=== PATIENT | female | born 1990 | race Caucasian/White ===

== ENCOUNTER 2020-01-17 11:02 | Outpatient (CLI) | payer BC, SELFPAY ==
--- NOTE | 2020-01-17 10:00 | DI.RAD_ITS ---
EXAM: XR KNEE LT 3V AP,LAT,LEATHA CLINICAL HISTORY: pain TECHNIQUE: COMPARISON: No exams were available for comparison FINDINGS: Three views were obtained. No bony or soft tissue abnormality seen. IMPRESSION:
--- NOTE | 2020-01-17 10:00 | DI.RAD_ITS ---
EXAM: XR HIP LT COMPLETE AP PELVIS CLINICAL HISTORY: pain TECHNIQUE: COMPARISON: No exams were available for comparison FINDINGS: Three views were obtained. The cartilaginous joint spaces of the hips appear fairly well maintained. There is tiny nonspecific ossific or calcific body adjacent to the lateral acetabulum left. SI joints appear well maintained. Bones of the hips and pelvis appear normal. IMPRESSION: Negative examination of the hip and pelvis.
== END 2020-01-17 11:22 ==
PROVIDERS: PCP Family Medicine; Referring Provider Family Medicine; Visit Provider Orthopaedic Surgery
DX: M25.552 Pain in left hip (principal); M25.562 Pain in left knee
CPT/HCPCS: 73562; 73502

== ENCOUNTER 2020-03-13 03:34 | Outpatient (CLI) | payer BC, SELFPAY ==
--- NOTE | 2020-03-13 07:30 | DI.MRI_ITS ---
EXAM: MR LOWER JOINT LT WO CLINICAL HISTORY: L KNEE PAIN,M25.562,G89.29. TECHNIQUE: Multiplanar multisequence MRI was performed. COMPARISON: CR XR KNEE LT 3V AP,LAT,LEATHA from 01/17/2020 FINDINGS: There is a small joint effusion. The cruciate and collateral ligaments and extensor mechanism appe ar intact. No meniscal tear is or significant meniscal degeneration is seen. No cartilage defects o r bone contusions are seen. IMPRESSION: Small joint effusion. No evidence of ligament or meniscal tear. DATA REPOSITORY:
== END 2020-03-13 03:54 ==
PROVIDERS: PCP Family Medicine; Visit Provider Orthopaedic Surgery
DX: M25.462 Effusion, left knee (principal); M25.562 Pain in left knee; G89.29 Other chronic pain
CPT/HCPCS: 73721

== ENCOUNTER 2020-06-14 13:29 | Outpatient (REF) | payer BC, SELFPAY ==
[2020-06-14 21:48] LABS: HCT 45.1 % (36.0-46.0); MCHC 33.3 % (32.0-36.0); MCV 87.2 fL (80-95); MPV 12.9 fL (8.0-11.0); Platelet Count 233 10^3/uL (130-400); RBC 5.17 10^6/uL (3.93-5.22); RDW 12.1 % (11.7-14.6); RDW-SD 38.9 fL; WBC 6.46 10^3/uL (4.4-10.8)
[2020-06-14 22:08] LABS: ALT 30 U/L (14-59); AST 18 U/L (15-37); Albumin 4.4 g/dL (3.4-5.0); Alkaline Phosphatase 96 U/L (46-116); Anion Gap 10.2 mmol/L (3-11); BUN 9 mg/dL (7-18); Bilirubin, Total 0.3 mg/dL (0.2-1.0); CO2 24.8 mmol/L (21.0-32.0); CREATININE 0.79 mg/dL (0.55-1.02); Chloride 103 mmol/L (98-107); Glucose 94 mg/dL (74-106); Sodium 138 mmol/L (136-145); TSH (W/Ref FT4) 1.33 uIU/mL (0.36-3.74); Total Protein 8.1 g/dL (6.4-8.2)
[2020-06-14 22:21] LABS: Vitamin D 25 Total 31.9 ng/ml (30-100)
[2020-06-14 22:27] LABS: ESR 12 mm/hr (0-20)
[2020-06-15 16:57] LABS: Rheumatoid Factor <8.6 IU/mL (<12.0)
[2020-06-18 14:30] LABS: ANA Interpretation Negative (Negative)
== END 2020-06-14 13:49 ==
LOC: NCHCN 13:29
PROVIDERS: PCP Family Medicine; Visit Provider Family Medicine
DX: M25.40 Effusion, unspecified joint (principal); I10 Essential (primary) hypertension; F41.8 Other specified anxiety disorders; R53.83 Other fatigue
CPT/HCPCS: 80053; 82306; 85027; 85652; 83735; 84443; 86038; 86431

== ENCOUNTER 2020-11-04 10:40 | Emergency (ER) | payer BC, SELFPAY ==
[2020-11-04 10:45] VITALS: BP 150/84; PULSE 89; RESP 16; TEMP 36.7; O2SAT 98
--- NOTE | 2020-11-04 10:45 | DI.RAD_ITS ---
Exam(s) XR ANKLE RT COMPLETE XR TIB/FIB RT EXAM: XR TIB/FIB RT and XR ankle RT complete CLINICAL HISTORY: pain s/p fall. TECHNIQUE: 2D digital imaging was performed. COMPARISON: No previous for comparison. FINDINGS: BONES: No acute fracture or dislocation is present. No bony destructive lesion is seen. Visualized po rtion of knee and ankle joints are unremarkable. SOFT TISSUE: There is soft tissue swelling about the ankle laterally. IMPRESSION: 1. No acute fracture or dislocation. 2. Soft tissue swelling about the ankle laterally. DATA REPOSITORY: RADIATION DOSE DELIVERED:
--- NOTE | 2020-11-04 10:55 | ED.GENADUL_ITS ---
Discharge Plan Disposition Patient Disposition: HOME Condition: Stable Discharge Details Clinical Impression: Right ankle sprain Primary Care Provider: Libby Reyes ED Provider: Blair Waters Home Meds and New Rx's Prescriptions: Continued norethindrone-e.estradiol-iron [07/25 (28)] 1 EACH tablet 1 tab-cap PO DAILY Qty: 3 RF: 6 Discontinued cyclobenzaprine 10 mg tablet 10 mg PO HS PRNRF: 0 meloxicam 15 mg tablet 15 mg PO DAILY Qty: 30 RF: 0 Discharge Instructions Instructions: Ankle Sprain (ED) Additional Instructions: your xrays did not show any broken bones follow up with your primary care provider if pain continues in a week if you have worsening pain or new pain such as chest pain or abdomen pain return to the emergency department Medical Decision Making 30 yo female comes in with right ankle pain. She states she was stepping out of her shed and when she placed her right foot down it inverted due to it being muddy. She denies hitting head or loc. Has no head pain, chest pain, abdomen pain and only has pain in the right ankle and mid tibia. She does have swelling of the lateral malleolus and can dorsi and plantar flex though with pain, normal sensation and pulses, no pain over the foot. No knee tenderness with no swelling as well. Suspect sprain vs distal fibula fracture, will obtain xray imaging unremarkable on my read and vrad read as well. Remains stable, and unchanged exam, suspect sprain, she has crutches and placed in walking boot. I advised to follow upwith her pcp if pain continues in a week and return precautions given Differential Diagnosis Differential Diagnosis: sprain, strain, fracture Imaging Data Radiologic Study: Attestation: I personally reviewed and interpreted this imaging study as follows: Imaging: X-Ray My impression: no acute findings tibia/fibula fracture Radiologic Study #2: Attestation: I personally reviewed and interpreted this imaging study as follows: Imaging: X-Ray My impression: no acute findings ankle xray HPI General Mode of arrival: ambulatory (using crutches) . Date/Time Provider Initiated Documentation: 11/04/20 10:50 . Limitations to Documentation: no limitations . Information obtained by: patient . History of Present Illness 30 year old F presents to the emergency department with the chief complaint of right ankle pain, described as moderate, Quality is described as aching, and it has been constant. Rest improves symptom(s), Movement worsens symptoms . Patient notes no other symptoms.. Patient did receive the following treatments prior to arrival, none Related Data Home Medications Medication Instructions Recorded Confirmed norethindrone-e.estradiol-iron 1 tab-cap PO DAILY #3 pack 10/12/17 11/04/20 [07/25 ()] Previous Rx's Medication Instructions Recorded norethindrone-e.estradiol-iron 1 tab-cap PO DAILY #3 pack 10/12/17 [07/25 (28)] Allergies Allergy/AdvReac Type Severity Reaction Status Date / Time No Known Allergies Allergy Unverified 11/04/20 10:49 General Stated Complaint: Orthopedic CHELSEA: 4 Review of Systems All systems reviewed & are unremarkable except as noted in HPI and below Constitutional Constitutional: Denies chills, Denies fever(s) and Denies weakness Cardiovascular Cardiovascular: Denies chest pain and Denies dyspnea Respiratory Respiratory: Denies cough and Denies dyspnea Gastrointestinal Gastrointestinal: Denies abdominal pain, Denies nausea and Denies vomiting Neurologic Neurologic: Denies weakness [facility] Social History Smoking/Tobacco Use Status: Never Smoking risk assessment performed?: Yes Drug use: Never Substance use type: does not use Do you feel safe at home: Yes Do you feel safe in your relationship?: Yes Exam Const General: no acute distress Orientation: alert HENMT Head: normal to inspection Ears: external ears normal General nose exam: external nose normal Mouth: moist mucous membranes Eyes General: appearance normal, both eyes and all related structures Neck Neck: normal visual inspection Resp Effort & Inspection: normal respiratory effort and able to speak in complete sentences Cardio Rate: regular rate Skin General skin exam: no rashes or lesions noted Neuro General: patient alert and patient oriented x3 Extrem General: capillary refill normal Psych Mental Status: mental status grossly normal Course Vital Signs Vital signs: Vital Signs Temperature 36.7 C 11/04/20 10:45 Pulse 89 11/04/20 10:45 Respiratory Rate 16 11/04/20 10:45 Blood Pressure 150/84 H 11/04/20 10:45 Pulse Oximetry 98 11/04/20 10:45 Temperature 36.7 C 11/04/20 10:45 Temperature Source Skin 11/04/20 10:45 Pulse 89 11/04/20 10:45 Respiratory Rate 16 11/04/20 10:45 Respiratory Effort 11/04/20 10:45 Blood Pressure 150/84 H 11/04/20 10:45 Blood Pressure Position Sitting 11/04/20 10:45 Pulse Oximetry 98 11/04/20 10:45 Oxygen Delivery Method Room Air 11/04/20 10:45 Oxygen Flow Rate 0 11/04/20 10:45 Pain Level 10 11/04/20 10:50
[2020-11-04] MEDS: Ibuprofen 600 MG TAB PO (10:58)
--- NOTE | 2020-11-04 11:47 | DI.VRAD_ITS ---
PROCEDURE INFORMATION: Exam: XR Right Ankle Exam date and time: 11/04/2020 10:55 AM Age: 30 years old Clinical indication: Pain; Ankle; Right TECHNIQUE: Imaging protocol: XR Right ankle. Views: 3 or more views. COMPARISON: No relevant prior studies available. FINDINGS: Bones/joints: Lateral malleolar soft tissue swelling There is no evidence of acute fracture.There is no evidence of malalignment or dislocation. Soft tissues: Lateral malleolar soft tissue swelling IMPRESSION: There is no evidence of acute fracture.There is no evidence of malalignment or dislocation. Dictated and Authenticated by: Shania Hicks MD. Ordering:EDDIE Pinto MD
--- NOTE | 2020-11-04 11:51 | DI.VRAD_ITS ---
PROCEDURE INFORMATION: Exam: XR Right Tibia and Fibula Exam date and time: 11/04/2020 11:14 AM Age: 30 years old Clinical indication: Injury or trauma; Fall; Sprain or strain; Lower leg; Right TECHNIQUE: Imaging protocol: XR Right tibia and fibula. Views: 2 views. COMPARISON: No relevant prior studies available. FINDINGS: Bones/joints: There is no evidence of acute fracture.There is no evidence of malalignment or dislocation. Soft tissues: Normal. IMPRESSION: There is no evidence of acute fracture.There is no evidence of malalignment or dislocation. Dictated and Authenticated by: Shania Hicks MD. Ordering:EDDIE Pinto MD
== END 2020-11-04 12:04 | disposition home or self-care (01) ==
PROVIDERS: Emergency Provider Emergency Medicine; PCP Family Medicine
DX: S93.491A Sprain of other ligament of right ankle, initial encounter (principal); W18.40XA Slipping, tripping and stumbling without falling, unspecified, initial encounter
CPT/HCPCS: 29515; 99284; 73590; 73610; 99283

== ENCOUNTER 2021-10-16 01:24 | Outpatient (CLI) | payer BC, SELFPAY ==
--- NOTE | 2021-10-16 10:48 | DI.US_ITS ---
APPROVED REPORT EXAM: Comprehensive 2D, Doppler, and color-flow Echocardiogram Patient Location: Out-Patient [facility] Clerk: Ana Cristina Gannon RDCS (AE) Other Information Study Quality: Adequate Conclusion Normal left ventricular wall thickness and chamber size. Estimated ejection fraction is 55 to 60%. Wall motion is normal Normal right ventricular size and systolic function Both atria are normal in size There is no structural or hemodynamically significant valvular disease Normal estimated right ventricular systolic pressure 21.5 mmHg Wall motion Left Ventricle The left ventricle is normal size. The left ventricular systolic function is normal. The left ventric ular ejection fraction is within the normal range. There is normal left ventricular wall thickness. T here is normal LV segmental wall motion. There is no ventricular septal defect visualized. LVEF is 57 %. Right Ventricle The right ventricle is normal size. The right ventricular systolic function is normal. The RVSP is 21 .5 mmHg. Atria The left atrium size is normal. The right atrium size is normal. The interatrial septum is intact wit h no evidence for an atrial septal defect. Aortic Valve The aortic valve is normal in structure. There is no aortic valvular stenosis. No aortic regurgitatio n is present. Mitral Valve The mitral valve is normal in structure. No evidence of mitral valve stenosis. Trace mitral regurgita tion. Tricuspid Valve The tricuspid valve is normal in structure. There is no tricuspid valve stenosis. Mild tricuspid regu rgitation. Pulmonic Valve The pulmonary valve is normal in structure. There is no pulmonic valvular stenosis. There is no pulmo nirmal valvular regurgitation. Great Vessels The aortic root is normal in size. The ascending aorta is normal in size. Aortic arch is normal in ca liber. IVC is normal in size and collapses >50% with inspiration. Pericardium There is no pericardial effusion. 2D Dimensions IVSD d PLAX 0.97 cm F: 0.6-1.0 LV Vol A2C d MOD 90.2 mL LVPW d PLAX 0.98 cm F: 0.6 - 1.0 LV Vol A4C d MOD 94.6 mL LVID d PLAX 4.63 cm F: 3.8 - 5.2 LA vol/ BSA A2C s A-L 17.4 mL/m2 LVDs 3.20 cm F: 2.2 - 3.5 LA vol/ BSA A4C s A-L 17.8 mL/m2 Ao Root d 2.73 cm F: 2.7 - 3.3 LA Vol/ BSA Biplane s A-L 18.6 mL/m2 RA Area A4C 11.99 cm2 LA Area A4C s MOD 14.58 cm2 RA Vol/ BSA A4C s A-L 13.6 mL/m2 LA Area A2C s MOD 13.64 cm2 Ao Asc Diam d 3.01 cm F: 2.3 - 3.1 LV EF A4C MOD 57.0 % LV EF Teichholz 57.5 % LV EF A2C MOD 57.6 % LVEF (Smyth's) 57.18 % F: 54 - 74 LV EF Biplane MOD 57.2 % LV Volume 70.81 mL F: 46 - 106 SV 54.18 mL LV Volume Index 35.05 mL/m2 F: 29 - 61 SV Index 26.79 mL/m2 LV Vol Biplane MOD 94.8 mL FS 30.15 % M-Mode TAPSE 1.80 cm (M/F) >1.7 LV Diastology MV E' medial 0.083 (>0.07 m/s) E/A Ratio 1.0 LV E/e MED 6.55 (<14) MV E Vmax 0.55 (0.4-1.3 m/s) MV E' lateral 0.150 (>0.1 m/s) MV A Vmax 0.55 (0.4-1.3 m/s) LV E/e LAT 3.60 (<14) MV E/A Ratio 0.98 MV E/E' medial 6.59 MV E/E' lateral 3.64 Aortic Valve LVOT Area 3.12 cm2 AoV Area Vmax 2.72 cm2 LVOT Vmax 0.98 m/s AoV Area/ BSA (Vmax) 1.34 cm2/m2 LVOT Mean Sim. 0.70 m/s DAKSHA Mean Sim. 2.56 cm2 LVOT Peak Grad 3.9 mmHg DAKSHA Mean Sim. Index 1.26 cm2/m2 LVOT Mean Grad 2.3 mmHg LVOT VTI 0.175 m LVOT Diam s 1.95 cm AoV Vmax 1.13 m/s Velocity Ratio 0.86 AoV Mean Sim. 0.86 m/s AoV Peak Grad 5.1 mmHg LVOT SV 54.62 mL AoV Mean Grad 3.2 mmHg AoV VTI 0.224 m AoV Area VTI 2.43 cm2 AoV Area/ BSA (VTI) 1.20 cm/m2 Mitral Valve MV DT 220 (160-240 msec) MV PHT 64 msec MV Area PHT 3.45 cm2 MV VTI 0.176 m MV Area VTI 3.10 (4.0-6.0 cm2) Pulmonary Valve PV Vmax 0.94 (0.5-1.5 m/s) RVOT Peak Gr. 1.53 mmHg PV Peak Grad 3.6 mmHg RVOT Mean Gr. 0.70 mmHg PV Mean Grad 1.8 mmHg RVOT VTI 0.117 m PV VTI 0.162 m RVOT Vmax 0.62 m/s Tricuspid Valve TR Peak Grad 18.5 mmHg TR Vmax 2.15 m/s RA Pressure 3.00 mmHg RVSP (TR) 21.5 mmHg
== END 2021-10-16 01:44 ==
PROVIDERS: Visit Provider Nurse Practitioner Family
DX: I07.1 Rheumatic tricuspid insufficiency (principal)
CPT/HCPCS: 93306

== ENCOUNTER 2022-10-23 02:31 | Outpatient (CLI) | payer BC, SELFPAY ==
--- NOTE | 2022-10-23 | DI.RAD_ITS ---
Exam(s) XR ANKLE RT COMPLETE EXAM: XR ANKLE RT COMPLETE CLINICAL HISTORY: RT ANKLE PAIN, M25.571. TECHNIQUE: 2D digital imaging was performed. Three views. COMPARISON: CR,XR XR ANKLE RT COMPLETE from 11/04/2020 FINDINGS: BONES: No acute fracture is present. No bony destructive lesion is seen. JOINTS: The ankle mortise is normally aligned. No joint space narrowing. SOFT TISSUE: Normal. IMPRESSION: Unremarkable radiographs of the right ankle. DATA REPOSITORY: RADIATION DOSE DELIVERED:
== END 2022-10-23 02:51 ==
LOC: DI 02:31
PROVIDERS: Visit Provider Nurse Practitioner Family
DX: M25.571 Pain in right ankle and joints of right foot (principal)
CPT/HCPCS: 73610

== ENCOUNTER 2022-11-13 01:15 | Outpatient (CLI) | payer BC, SELFPAY ==
--- NOTE | 2022-11-13 12:45 | DI.MRI_ITS ---
Exam(s) MR LOWER JOINT RT WO EXAM: MR LOWER JOINT RT WO CLINICAL HISTORY: RT ANKLE PAIN, M25.571 TECHNIQUE: Multiplanar multisequence MRI was performed without intravenous contrast. COMPARISON: CR XR ANKLE RT COMPLETE from 10/23/2022 FINDINGS: SKIN: No evidence of ulcer nor subcutaneous tract. BONES/JOINTS: No evidence of fracture nor bone contusion. There is a small-moderate size ankle joint effusion. No obvious loose intra-articular body. The talar dome appears unremarkable. There is s ome narrowing of the anterior aspect of the tibiotalar joint. Some cartilage loss evident this level. No osteophytes subarticular degenerative cysts. No loose intra-articular bodies evident. Osteochondr al defects talar dome. There is no evidence of osseous tarsal coalition. LIGAMENTS: The anterior and posterior tibiofibular and calcaneofibular ligaments are intact. Anterior talofibular ligament appears thin. Consistent with chronic injury. Posterior talofibular ligament exhibits some abnormal signal but without high-grade tear. On the opp osite-medial aspect of the ankle joint the deltoid ligament is intact. SINUS TARSI: Relatively preserved fat signal in the space noted. There is small septated cysts in thi s space consistent ganglion cysts but these do not extend beyond the space into the surrounding tissu es.. These do not extend beyond the sinus tarsi space. ANTEROLATERAL GUTTER:There is no abnormal signal/abnormal tissue in this space. MUSCULOTENDINOUS STRUCTURES: Achilles tendon: Unremarkable. No evidence of tear nor tendinitis/tendinosis. Plantar fascia: Unremarkable. No evidence of tear, abnormal thickening, nor abnormal nodularity. Anterior Extensor tendons: Unremarkable. Medial Tendons: Posterior Tibialis: Unremarkable. No tear or tenosynovitis evident. Flexor Digitorum longus: Unremarkable. No tear or tenosynovitis evident. Flexor Hallicus longus: Unremarkable. No tear or tenosynovitis evident. Lateral Tendons: Peroneus longus: No tear . Mild tenosynovitis around the lateral malleolus. Peroneus brevis:No tear. Mild tenosynovitis around the lateral malleolus. SOFT TISSUES: Unremarkable. OTHER FINDINGS: None. IMPRESSION: 1. There is mild-moderate degenerative narrowing anterior aspect of the tibiotalar joint. There is al so a tibiotalar joint effusion noted. No loose intra-articular bodies. No osteochondral defects seen. 2. Somewhat thinned anterior talofibular ligament, probably related to chronic injury. There is also some mild fluid related to the posterior talofibular ligament but no high-grade tear of this structur e. 3. No abnormal marrow signal. DATA REPOSITORY:
--- NOTE | 2022-11-13 19:22 | DI.VRAD_ITS ---
PROCEDURE INFORMATION: Exam: MR Right Lower Extremity Joint Without Contrast; Ankle Exam date and time: 11/13/2022 12:16 PM Age: 32 years old Clinical indication: Pain; Ankle; Right TECHNIQUE: Imaging protocol: Magnetic resonance imaging of the right lower extremity without contrast. Exam focused on the ankle. COMPARISON: CR XR ANKLE RT COMPLETE 10/23/2022 2:40 PM FINDINGS: Bones/joints: No fracture. No marrow edema. No suspicious marrow lesion. Articular cartilage in the ankle is moderately thin, with narrowing across the ankle mortise, most severe between the anterior tibial plafond and talar dome. No osteophytes are observed. A mild joint effusion is present in the ankle. The subtalar joint is unremarkable. The talonavicular and calcaneocuboid joints are unremarkable. LIGAMENTS: Distal tibiofibular syndesmosis: Normal. No widening. No abnormal fluid. Anterior talofibular ligament: Intact. Posterior talofibular ligament: Intact although thickened with moderate signal abnormality and mild surrounding fluid. Calcaneofibular ligament: Intact. Deltoid ligament complex: Unremarkable. No tear. No signal abnormality. TENDONS: Flexor tendons of foot: Normal signal and morphology. Mild fluid is observed around the flexor hallucis longus tendon. Tibialis posterior tendon: At the insertion site on the navicular, the tendon is amorphous with mild signal abnormality. There is no retraction. Most of the tendon is normal in signal and morphology. Peroneal tendons: Normal signal and morphology. Mild fluid is noted in the tendon sheath proximally. Extensor tendons of foot: Unremarkable as visualized. Tibialis anterior tendon: Unremarkable as visualized. Achilles tendon: Normal signal and morphology. Tarsal canal (Sinus tarsi): Unremarkable. Normal signal of the fat. Tarsal tunnel: Unremarkable. No fluid collection or mass. Soft tissues: Unremarkable. Plantar fascia: Plantar fascia is unremarkable. IMPRESSION: 1. Moderate narrowing in the ankle mortise. Mild joint effusion. No significant osteophytes. Associated chondromalacia noted. Question inflammatory arthropathy affecting the ankle. 2. Mild posterior tibialis tendinosis at the insertion site. Dictated and Authenticated by: Blair Garcia MD. Ordering:ALFRED Menendez MD
== END 2022-11-13 01:35 ==
LOC: DI 01:15
PROVIDERS: Visit Provider Nurse Practitioner Family
DX: M25.571 Pain in right ankle and joints of right foot (principal); M19.071 Primary osteoarthritis, right ankle and foot
CPT/HCPCS: 73721

== ENCOUNTER 2024-04-20 12:46 | Outpatient (REF) | payer BC, SELFPAY ==
--- OUTSIDE RECORDS SUMMARY | 2024-04-20 12:49 | XMS_ITS | Encounter Summary ---
Author Organization [facility] [place] [address] Care Team Providers Care Cytology Supervisor Name Role Phone Unknown Primary Care Provider Unavailabl e Encounter Details Date Type Department Care Team (Late st Contact Info) Description 11/04/2020 12:05 AM EDT Ancillary Procedure Radiology Library at [facility] [place] [address] Gemma Samaniego APRN [address] [place], [place] [address] Social History Tobacco Use Types Packs/Day Years Used Date Smoking Tobacco: Never Assessed Sex and Gender Information Value Date Recorded Sex Assigned at Female 05/11/2023 8:49 AM EST Gender Identity Female 05/11/2023 8:49 AM EST Sexual Orientation Lesbian or Adorno 05/11/2023 8: 49 AM EST documented as of this encounter Plan of Treatment Not on file documented as of this encounter Procedures Procedure Name Priority Date/Time Associated Diagnosis Comments FILM LIBRARY STORAGE ONLY DX LOWER EXTREMITY Routine 11/04/2020 12:05 AM EDT documented in this encounter Results * Film Library- Storage Only DX Lower Extremity (11/04/2020 12:05 AM EDT) Narrative BANG GILLESPIE - 11/18/2022 3:03 PM EDT This exam is auto-finalizing. It's purpose is for storage only. Gemma Samaniego APRN IMG FILM LIBRARY ORD ERABLES Performing Organization Address City/State/[facility] Co de Phone Number [place], [place] documented in this encounter Visit Diagnoses Not on filedocumented in this encounter Care Teams Cytology Supervisor Relationship Specialty Start Date End Date Unknown None PCP - General 04/05/18 05/04/23 documented as of this encounter
--- OUTSIDE RECORDS SUMMARY | 2024-04-20 12:49 | XMS_ITS | Encounter Summary ---
Author Organization [facility] [place] [address] Care Team Providers Care Management Developer Name Role Phone Unknown Primary Care Provider Unavailabl e Encounter Details Date Type Department Care Team (Late st Contact Info) Description 11/04/2020 Ancillary Procedure Radiology Library at [facility] [place] [address] Gemma Samaniego APRN [address] [place], [place] [id number] Social History Tobacco Use Types Packs/Day Years [...] Diagnosis Comments FILM LIBRARY STORAGE ONLY DX ANKLE Routine 11/04/2020 12:00 AM EDT documented in this encounter Results * Film Library- Storage Only DX Ankle (11/04/2020 12:00 AM EDT) Narrative BANG GILLESPIE - 11/18/2022 3:00 PM EDT This exam is auto-finalizing. It's purpose is for storage only. Gemma Samaniego APRN IMG FILM LIBRARY ORD ERABLES [place], [place] documented in this encounter Visit Diagnoses Not on filedocumented in this encounter Care Teams Management Developer Relationship Specialty Start Date End Date Unknown None PCP - General 04/05/18 05/04/23 documented as of this encounter
--- OUTSIDE RECORDS SUMMARY | 2024-04-20 12:49 | XMS_ITS | Encounter Summary ---
[place] [address] Care Team Providers Care Engine Lathe Set Up Operator Name Role Phone None Primary Care Provider Unavailabl e Reason for Visit * Auth/Cert (Routine) Specialty Diagnoses / Procedures Referred By Natalia t Referred To Contact Diagnoses Ankle instability, right Peroneus brevis tendinitis, right Right ankle instability Procedures PRO ANKLE SCOPE, EXTENS DEBRIDEMNT PRO REPAIR COLLAT ANKLE LIGMNT, SECONDARY ARTHROSCOPY ANKLE, EXTENSIVE DEBRIDEMENT (WRVU 8.49) ANKLE LIGAMENT REPAIR, SECONDARY (BROSTROM) (WRVU 9.61) Lilibeth Perry MD [facility] [place] [address] [facility] Referral ID Status Reason Start Date Expiration Date Visits Re quested Visits Authorized [id number] 1 1 Encounter Details Date Type Department Care Team (Late st Contact Info) Description 05/07/2023 9:50 AM EDT - 05/07/2023 12:18 PM EDT Surgery [place] [id number] Lilibeth Perry MD [facility] [place] [address] ARTHROSCOPY ANKLE, EXTENSIVE DEBRIDEMENT (WRVU 8.49) Social History Tobacco Use Types Packs/Day Years Used Date Smoking Tobacco: Never Smokeless Tobacco: Never Tobacco Cessation:Counseling Given: No Alcohol Use Standard Drinks/Week Comments Yes 0 (1 standard drink = 0.6 oz pur e alcohol) A couple drinks/week DH IPV Inpatient Questions Answer Date Recorded Prevent Contact with Others Not on file 08/2022 Feels Threatened by Someone Not on file 08/2022 Feels Unsafe at Home Not on file 05/07/2023 Physical Signs of Abuse Present no 05/07/2023 Sex and Gender Information Value Date Recorded Sex Assigned at Female 05/11/2023 8:49 AM EST Gender Identity Female 05/11/2023 8:49 AM EST Sexual Orientation Lesbian or Adorno 05/11/2023 8: 49 AM EST documented as of this encounter Last Filed Vital Signs Vital Sign Reading Time Taken Comments Blood Pressure 125/80 05/07/2023 12:13 PM EDT Pulse 78 05/07/2023 9:49 AM EDT Temperature 36.5 ??C (97.7 ??F) 05/07/2023 12:13 PM E DT Respiratory Rate 16 05/07/2023 12:15 PM EDT Oxygen Saturation 98% 05/07/2023 9:49 AM EDT Inhaled Oxygen Concentration - - Weight 88.5 kg (195 lb) 05/07/2023 8:06 AM EDT Height 170.2 cm (5' 7) 05/07/2023 8:06 AM EDT Body Mass Index 30.54 05/07/2023 8:06 AM EDT documented in this encounter Discharge Instructions * Discharge Instructions* Leticia Stanley RN - 05/07/2023 8:10 AM EDT General Anesthesia Discharge Instructions Go home and rest. You may be sleepy for several hours. Take it easy as sudden position changes may cause nausea and/or dizziness. Use caution on stairs. Do not smoke if you are alone. Follow a light to regular diet as tolerated today. If nausea occurs, start with clear liquids, and progress slowly to a regular diet. Do not drive, operate machinery, drink alcoholic beverages or make any legal decisions after havinggeneral anesthesia. The medications given change your reaction time and alter your judgement. IV site -- slight redness is normal, you can use warm compresses. If tenderness and redness increases or foul drainage occurs, please contact your M.D. Patients who have had endotracheal tubes/LMA (tubes used by the anesthesia staff to ensure a safe airway during your operation) may have a sore throat. This is normal and cold liquids or soothing lozenges will help ease this discomfort. Narcotic pain medications can cause constipation, please ask the surgeons office what they recommend for prevention of this. Some non-pharmaceutical means of constipation prevention include increasing intake of fluids, eating more fruits and vegetables as well as fruit juices. If you are uncomfortable and/or unable to urinate within 8 hours of discharge and it is before 5 pm, call your physician. If it is after 5pm go to the closest emergency room or call the hospital ground surveillance systems operator at [phone] and ask for physician director of land acquisition covering for your physician. Questions or problems after 5pm or on a weekend: Call the [facility] ground surveillance systems operator at and ask for the physician director of land acquisition covering for your doctor. Lower Extremity Nerve Block Nerve blocks affect many types of nerves. The affected nerves control movement, pain, and normal sensation. This causes feelings such as: Weakness Numbness Tingling Heaviness A feeling that your leg or foot has fallen asleep. A nerve block can last from about 2 to 48 hours, depending on the medications used. Usually the weakness wears off first, then you will feel a numb or tingly sensation. Finally, the pain may come back. This can happen in any order. If you continue to feel the effects of the nerve block for longer than 48 hours, please call the Anesthesiology department at . Pain Medication If needed, your surgeon will give you a prescription for pain medication. Start taking this medication before the nerve block wears off. Nerve blocks sometimes wear off during the night. It is a goodidea to take your pain medicine as prescribed before going to sleep so you won't wake up with pain.The idea is to have pain medicine in your body before the nerve block wears off. To help prevent nausea, eat something before taking the pain medicine. Once a nerve block starts to wear off, it is usually completely gone within 60 minutes. It is important to have pain medicine in your system before the block wears off completely. Helpful tips to protect the part of your body that is numb. After a nerve block, you cannot feel pain, pressure, or extremes in temperature. Because your leg or foot is numb, it is more at risk for injury. Therefore.... While you are awake, try to change positions of your leg or foot often. This will help you avoid putting too much pressure on the limb for long periods of time. While sleeping, pad the blocked limb with pillows to avoid placing too much pressure on the limb. If you have a cast or a tight dressing, check the color of your toes every couple of hours. Call your doctor if any look discolored. Ask your family or support people to help with the above hints. QUESTIONS? Please call the Anesthesiology department at with concerns or after hours and ask for the anesthesiologist director of land acquisition. At 08:15am you received 1000 mg of acetaminophen- Your next dose should not be taken before 8 hourshave passed. Next dose not before- 4:15pm. You should not take more than a total of 3000 mg of acetaminophen in a 24 hour period. * Patient Instructions* Warren Bellamy PA - 05/07/2023 8:46 AM EDT Orthopedic Foot and Ankle discharge instructions Activity: Please keep affected extremity elevated and ice as needed. Dressing or splint: soft splint WEIGHT BEARING: Non weightbearing Provide patient with crutches and crutch instruction if needed Do not drive until instructed to do so by your surgeon's team Pain Medication Protocol: Oxycodone 5 mg every 4 hours as needed. Take this medication with a small amount of food to help prevent nausea. This medication is a short acting narcotic pain medication. Ostq-kak-erbteni Tylenol (acetaminophen) should be taken in addition to narcotic. This will allow the narcotic to work more effectively, and may make it easier to discontinue the narcotic sooner. Follow the instructions on the Tylenol package for dosage and frequency. Do not exceed 3000mg acetaminophen per day. You may take NSAIDs including ibuprofen, Motrin or Aleve per package instructions in addition to the tylenol for pain control. Do not take if directed by your PCP or other physician to not take NSAIDs for another medical condition. Anti-Coagulation Plan: 1) Aspirin - You have been discharged on enteric-coated Aspirin 81 mg by mouth daily. Continue thisfor 1 month from surgery or until your mobility improves and surgeon instructs you to stop. Take with meals to minimize gastrointestinal (stomach) irritation. This is to help prevent a blood clot. Post-operative constipation: Constipation is common after surgery. Drinking plenty of water is important in helping to prevent this. An cnbp-lgd-ifvmzut stool softener can also help prevent or treat constipation. Colace 100mg tablets can be obtained at most pharmacies and can be taken 2 - 3 times a day. The pain medication may also cause nausea. If you have significant nausea, we can provide a prescription for an anti-nausea medication. Cryotherapy: Ice is a highly effective anti-inflammatory in the postoperative period. It helps reduce inflammation and pain. Apply an ice pack to the surgical area for 20-30 minutes every 1-[address]. [address] ice directlyon the skin as this can cause frostbite; place a towel/rag between the ice and skin. Specific cooling machines have been designed to help with icing. Your physical therapist may use this during therapy sessions Dressing/Wound Care: 1. Suture/staple removal 2 weeks post-op. Splint Care: Keep the cast or splint in place until your follow-up with Orthopedics. Keep the cast/splint clean and dry. It is easiest to sponge bathe, but if you must bathe, protect the cast/splint with a plastic bag high above the cast or splint and secure with adhesive tape. Do not submerge the cast in water at anytime. If the cast accidently gets wet, call the office immediately to have it replaced. A wet cast can cause severe skin and wound problems. Shower/Bath: You may shower BUT use a waterproof dressing (plastic bag taped at the top) to cover the incision/dressing. DO NOT submerge the wound. Remember you MUST to observe your weight bearing status and activity limitations when you shower so use a chair or bench for balance if you are unable to safely stand. A sponge bath may be easier. If your splint becomes wet please call our office as it will need to be replaced Call our office if you develop: Fever greater than 100.5 Severe nausea or vomiting Increasing pain that is not controlled by pain medications Increasing redness, swelling, or drainage from incisions Change in sensation Future Appointments Date Time Provider Department Center 05/19/2023 2:00 PM Warren Bellamy PA [facility] ORTH [address] [place] [address] If you have questions or concerns please contact our [facility] office Thursday through Thursday, 8 AM - 5 PM, at . If it is after 5 PM or on the weekend, please call and ask to speak with the Orthopedic resident on-call. documented in this encounter Medications at Time of Discharge Medication Sig Dispensed Refills Start Date End Date , 1.5-30 mg-mcg tablet 12/03/2022 norethindrone-ethinyl estradiol (Microgestin 07/25) 1-20 mg-mcg tablet Take 1 tablet by mouth daily. metoprolol tartrate (LOPRESSOR) 25 mg Tablet Take 25 mg by mouth 2 times daily. levonorgestrel-ethinyl estradiol (SEASONALE;JOLESSA) 0.15 mg-30 mcg , 91 tablet dose pack, 3 months Take 1 tablet by mouth daily. oxyCODONE (Roxicodone) 5 mg tablet Take 1 tablet by mouth every 4 hours as needed. 12 tablet 05/07/2023 07/15/2023 aspirin EC 81 mg EC (DR) tablet Take 1 tablet by mouth 2 times daily. 30 tablet 3 05/07/2023 09/15/2023 documented as of this encounter Progress Notes * Kerry Banuelos RN - 05/07/2023 1:05 PM EDT Discharge instructions and medications reviewed with patient and . All questions answered and written copy sent home with patient. Patient ambulated to car for discharge accompanied by [facility] staff member. * Leticia Stanley RN - 05/07/2023 9:52 AM EDT Date/Procedure: Meds Given Comments 05/07/2023 RLE Peripheral Nerve Block Midazolam: 2mg Pt tolerated well. documented in this encounter H&P Notes * Warren Bellamy PA - 05/07/2023 8:41 AM EDT Patient Name: Cassandra Brizuela Patient Age: 32 y.o. Birthdate: 1990 Admit date: 05/07/2023 Attending Physician: Lilibeth Perry MD ORTHOPEDIC PRE-OPERATIVE HISTORY AND PHYSICAL for ADMISSION, OBSERVATION OR PROCEDURE Date of : 1990 Age: 32 y.o. PCP: Sydni Villavicencio MD Presenting Diagnosis/Chief Complaint: Right ankle instability History of Present Illness: Cassandra Brizuela is a 32 y.o. female who presents for pre-operative examination. Please see Dr. Patiño for full details of the patient's specific problem. Patient denies any changes since last seenin clinic. Denies fevers, chills, headache, dizziness, chest pain, or shortness of breath. Review of Systems: complete 10 system ROS performed with pertinent findings below. Pertinent items are noted in HPI. PMHx: There is no problem list on file for this patient. No past medical history on file. No past surgical history on file. Home Medications: Medications Prior to Admission Medication Sig Dispense Refill Last Dose norethindrone-ethinyl estradiol (Microgestin 07/25) 1-20 mg-mcg tablet Take 1 tablet by mouth daily. Allergies: No Known Allergies Family History: Non contributory No family history on file. Social History: Social History Socioeconomic History Marital status: Spouse name: Not on file Number of children: Not on file Years of education: Not on file Highest education level: Not on file Occupational History Not on file Tobacco Use Smoking status: Never Smokeless tobacco: Never Substance and Sexual Activity Alcohol use: Yes Comment: A couple drinks/week Drug use: Not Currently Sexual activity: Not on file Other Topics Concern Not on file Social History Narrative Not on file Social Determinants of Health Financial Resource Strain: Not on file Food Insecurity: Not on file Transportation Needs: Not on file Physical Activity: Not on file Intimate Partner Violence: Not on file Housing Stability: Not on file Physical Exam: VITALS: Temperature Temp: 36.3 ??C (97.3 ??F) Heart Rate Heart Rate: 93 Blood Pressure BP: 118/82 Respiratory Rate Resp: 16 SpO2 SpO2: 99 % No intake/output data recorded. General: alert, appears stated age, and cooperative Pulmonary: Normal, equal, clear breath sounds bilaterally, and no crepitus Cardiovascular: Regular rate and rhythm or S1S2 present Assessment and Plan: 32 y.o. female with the above problem, plan to proceed to OR with Dr. Vicky Mclean ankle scope with Brostrom stabilization, peroneal exploration . Patient Pharmacy for outpatient medications: [facility] [place] Pain medications to prescribe:oxycodone WB status: NWB x 4 weeks Postop Dressing: Splint - leave in place until clinic follow up DVT prophylaxis: ASA 81 mg daily x 30 days Follow up: 2 week(s) documented in this encounter Miscellaneous Notes * Brief Op Note - Blair Canales MD - 05/07/2023 12:10 PM EDT Brief Operative Note Patient Name: Cassandra Brizuela : [id number] MR#: [id number] Case Date: 05/07/2023 Surgeon: Surgeon(s) and Role: * Lilibeth Perry MD - Primary * Blair Canales MD - Resident - Assisting Preoperative diagnosis: Right ankle instability Postoperative diagnosis: Right ankle instability, lateral OCD, peroneus brevis tear Procedures: Right arthroscopic ankle debridement Right OCD debridement and microfracture Right peroneus brevis repair Right Brostrom Reconstruction Procedure(s) (LRB): ARTHROSCOPY ANKLE, EXTENSIVE DEBRIDEMENT (WRVU 8.49) (Right) ANKLE LIGAMENT REPAIR, SECONDARY (BROSTROM) (WRVU 9.61) (Right) Anesthesia: General . Findings: lateral OCD, peroneus brevis tear, ankle instability Complications: none Estimated Blood Loss: * No values recorded between 05/07/2023 10:31 AM and 05/07/2023 12:07 PM * Specimens removed during surgery: None Fluids: Intraprocedure Crystalloid Total None PRBCs: none (See Anesthesia Record/Report for Other Blood Products) Urine Output: (no urine output recorded) Drains: none Disposition: awakened from anesthesia, extubated and taken to the recovery room in a stable condition, having suffered no apparent untoward event. Condition: doing well without problems (Please see the Surgical Encounter Summary for any Implant and Specimen details pertinent to this patient.) Surgical Infection Prevention Bundle Used? 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 measuring 3 x 6 mm and involving the shoulder Right ankle peroneus brevis tendon split tear Right peroneus longus tenosynovitis Principal procedures: Right ankle arthroscopy with extensive debridement and treatment of lateral talar dome osteochondral defect Right ankle Brostr??m stabilization with internal brace augmentation Right ankle peroneus brevis primary repair Anesthesia: General Estimated Blood Loss: 0 mL Specimens removed during surgery: None Drains: * No LDAs found * Surgical Closure: Primary Closure - skin incision is completely closed without any wires, emiliano, drains or other devices Disposition: awakened from anesthesia, extubated and taken to the recovery room in a stable condition, having suffered no apparent untoward event. Condition: doing well without problems (Please see the Surgical Encounter Summary for any Implant and Specimen details pertinent to this patient.) HPI/Surgical Indications: The patient is a 32-year-old female who approximately 2 years ago, had a severe ankle sprain. She tried to get back into regular activities but still had difficulty despite appropriate nonoperative management. At this time, her MRI is suggestive of peroneal tendinopathy and she has failed conservative management including activity modification, bracing and physical therapy. After discussion with the patient the risks and benefits of operative intervention, the patient wished to proceed with surgical intervention. Specific risks discussed with the patient with risk ofinfection, bleeding, damage to adjacent structures, recurrent laxity, stiffness, blood clots and need for further procedures. The patient signed an informed consent. Procedure Description: The patient was brought to the operating room and a surgical timeout was performed. The surgical site which been marked in the preoperative area with the patient's consent was matched to the consent in the operative suite. The entire team was in accordance as the appropriate side, site, patient and procedure. General anesthesia was induced and the patient was positioned in the supine position with a bump underneath the operative hip. The right lower extremity was prepped and draped in the usual sterile manner. The leg was elevated,exsanguinated and tourniquet was elevated to 250 mmHg. The leg was placed in a thigh schulz as wellas having an unsterile tourniquet underlying. The leg was placed into ankle distraction. Using the trajectory of an injection of normal saline, the anteromedial portal was established. Dissection wascarried sharply through skin and bluntly through subcutaneous tissues and down to the capsule. The trocar was inserted into the joint and the camera followed thereafter. Under direct visualization the anterolateral portal was established in a similar fashion taking care to avoid damage to the superf icial peroneal nerve which had been marked out prior to elevation of the tourniquet. With both portals established I was able to fully inspect the joint with the following findings: There is a significant amount of synovitis both the anterolateral and anteromedial aspect of the ankle joint as well as in the tibiofibular junction. Additionally, there was slightly soft cartilage at the medial and central talar domes. The lateral talar dome had an osteochondral defect that went over the shoulder but was difficult to see with the instability of the ankle on arthroscopy. Additionally, there is a small anterior distal tibial spur with unstable cartilage underlying. There were no loose bodies in ei ther the medial or lateral gutters. An arthroscopic shaver was used to debride the anterolateral and anteromedial synovitis. The shaver was also used to remove the synovitis at the tibiofibular junction. I used the arthroscopic shaver on fast forward to debride the distal tibial spur and the accompanying under lying unstable cartilage. There was no anterior impinging talar neck spur appreciated. Given the fact that the joint was severely unstable and this made it difficult because of the varus positioning of the joint to get into the gutter, I elected to do the remainder of the treatment of the osteochondral defect during the open portion of the case. The joint was then copiously irrigated and instruments were withdrawn from the joint. The leg was taken out of the well leg schulz. A curvilinear incision was from the fibular metaphysis toward the base of the fourth metatarsal. Dissection was carried sharply through skin and bluntly through subcutaneous tissues down to the peroneal tendon sheath. The peroneal tendon sheath was opened to show a significant amount of synovitis around both the peroneus longus and the peroneus brevis. This was debrided. There was a small split tear of the peroneus brevis which was debrided and repaired with 4-0 Prolene using a tubularization technique. The retrofibular groove was confirmed to be adequately deep. The tendons were reduced into the groove. I then dissected sharply off the anterior and distal aspects of the distal fibula. It was at this time, that I was able to identify the extent of the lateral talar dome osteochondral defect. I debrided the unstable cartilage back to a stable rim. The entire extent of the lateral dome osteochondral defect measured 3 x 6 mm and did go over the shoulder. I then conducted a microfracture. I developeda posteriorly based periosteal flap along the lateral aspect of the fibula. I used a rongeur to create a trough in the anterior and distal aspects of the distal fibula. I then drilled, tapped and placed the anchor for the internal brace into the talus. I used a free needle to pass the suture tape through the base of the ATFL. I drilled the fibular recipient site for the internal brace. I used a Kwire to create two bone tunnels going from the lateral aspect of the fibula into the trough,two proximal to the fibular recipient site and two distal to the fibular recipient site. I then passed #2 Et hibond through the most proximal bone tunnel, through the attenuated ATFL and back through the adjacent bone tunnel. I did the same thing with #2 Ethibond through the 2 distal bone tunnels and the adjacent attenuated calcaneofibular ligament. After copious irrigation, I engaged the internal brace keeping the foot neutrally dorsiflexed and maximally everted and externally rotated to make sure thatthe repair was snug but not overly tight. I then tied the #2 Ethibond over bone, cinching down boththe anterior talofibular ligament and the calcaneofibular ligament. Finally I sutured the periosteal flap to the extensor retinaculum with 2-0 Vicryl. I repaired the peroneal tendon sheath with 2-0 Vi cryl. I made sure that both the tendons were gliding well. I then closed in a layered fashion with 2-0 Vicryl for deep tissues, 4-0 Vicryl for subcutaneous tissues and 4-0 nylon for the skin. The tourniquet was up for a total of 90 minutes. The incisions were dressed with Xeroform, 4 x 4's, ABDs, cast padding and placed into a bulky U splint overwrapped with Coban. The patient was then awakened from general anesthesia and transferred to the recovery roombed in the recovery room in a stable state. Complications: None Implant Name Type Inv. Item Serial No. Health Services Director Lot No. LRB No. Used Action KIT FIXATION DRILL ANKLE INTERNALBRACE ([id number]) (AutoReq) - [id number] IMPLANTS KIT FIXATION DRILLANKLE INTERNALBRACE ([id number]) (AutoReq) [employer] [place] [id number] Right 1 Implanted Postoperative plan: The patient will be nonweightbearing for a total of 4 weeks. They will return to clinic in 2 week's time at which point they will be taken out of their splint and put into a boot.There is no need for x-rays at that time. They will begin working on physical therapy both with exercises that we show them in clinic as well as starting formal physical therapy. We will show them how to work their peroneals with full inversion and eversion and also work on dorsiflexion and plantarflexion. At 4 weeks time, they will return to clinic at which point we will get them weightbearing as tolerated in the boot and follow the standard boot weaning protocol. We will see them back in clinic at 10 weeks time for repeat functional evaluation. There is no need for x-rays at that time either. Surgical Infection Prevention Bundle Used? No Attestation: Case Date: 05/07/2023 I was present and I participated during the entire procedure (does not need to include opening and closing). Lilibeth Perry MD 05/07/2023 documented in this encounter Plan of Treatment Not on file documented as of this encounter Procedures Procedure Name Priority Date/Time Associated Diagnosis Comments FLEXOR TENDON REPAIR, LEG, PRIMARY Routine 05/07/2023 9:57 PM EDT Ankle instability, right Peroneus brevis tendinitis, right Repair Flex Leg Tendon, Prim, Ea ([id number]) 05/07/2023 10:13 AM EDT Ankle instability, right Peroneus brevis tendinitis, right Repair Collat Ankle Ligmnt, Secondary ([id number]) 05/07/2023 10:13 AM EDT Ankle instability, right Peroneus brevis tendinitis, right Ankle Scope, Extens Debridemnt ([id number]) 05/07/2023 10:13 AM EDT Ankle instability, right Peroneus brevis tendinitis, right ARTHROSCOPY ANKLE, EXTENSIVE DEBRIDEMENT Routine 05/07/2023 8:03 AM EDT Ankle instability, right Peroneus brevis tendinitis, right documented in this encounter Visit Diagnoses Diagnosis Ankle instability, right Peroneus brevis tendinitis, right Ankle instability, right Peroneus brevis tendinitis, right documented in this encounter Administered Medications Inactive Administered Medications - up to 3 most recent administrations Medication Order MAR Action Action Date Dose Rate Site acetaminophen (Tylenol) tablet 975 mg 975 mg, Oral, ONCE, 1 dose, On Landy 05/07/23 at 0830, Administer with a SIP of water only. Maximum dose of acetaminophen is 4,000 mg from all sources in 24 hours., Day of Surgery (Day of Procedure), Routine Given 05/07/2023 8:11 AM EDT 975 mg lactated ringers infusion 1,000 mL, at 100 mL/hr, Intravenous, CONTINUOUS, Starting on Landy 05/07/23 at 0830, Until Landy 05/07/23 at 1254, Day of Surgery (Day of Procedure) Restarted 05/07/2023 10:12 AM EDT New Bag 05/07/2023 8:26 AM EDT 1,000 mLs 100 mL/hr midazolam (Versed) (1 mg/mL) injection 1 mg 1 mg, Intravenous, EVERY 5 MIN PRN, Starting on Landy 05/07/23 at 0805, Until Landy 05/07/23 at 1254, Sleep, or prior to injection of local anesthetic, Hold for delirium/agitation. (Maximum dose 5 mg)., Intra-Operative (Intra-Procedure), Routine Given 05/07/2023 9:42 AM EDT 2 mg documented in this encounter Active and Recently Administered Medications Times are shown in EDT. Scheduled Medication Order 05/05/2023 05/06/2023 05/07/2023 acetaminophen (Tylenol) tablet 975 mg (COMPLETED) 975 mg, Oral, ONCE, 1 dose, On Landy 05/07/23 at 0830, Administer with a SIP of water only. Maximum dose of acetaminophen is 4,000 mg from all sources in 24 hours., Day of Surgery (Day of Procedure), Routine 0811 (Given - Provid er: Leticia Stanley RN) ceFAZolin (Ancef) 2 g vial attach to sodium chloride 0.9% 100 mL Mini-Bag Plus (COMPLETED) 2 g, Intravenous, ONCE, 1 dose, On Landy 05/07/23 at 0830, Administer over 30 Minutes, Day of Surgery (Day of Procedure), Indication for (Active or Suspected): Prophylaxis 1024 (New Bag - Prov ider: Robb Carver CRNA) Continuous Medication Order 05/05/2023 05/06/2023 05/07/2023 lactated ringers infusion (CANCELED) 1,000 mL, at 100 mL/hr, Intravenous, CONTINUOUS, Starting on Landy 05/07/23 at 0830, Until Landy 05/07/23 at 1254, Day of Surgery (Day of Procedure) 0826 (New Bag - Prov ider: Leticia Stanley RN)1011 (Paused - Provider: Robb Carver CRNA - Comment: Switch to gravity)1012 (Restarted - Provider: Robb Carver CRNA)1033 (Anesthesia Volume Adjustment - Provider: Robb Carver CRNA)1101 (Anesthesia Volume Adjustment - Provider: Robb Carver CRNA)1158 (Stopped - Provider: Robb Carver CRNA) PRN Medication Order 05/05/2023 05/06/2023 05/07/2023 midazolam (Versed) (1 mg/mL) injection 1 mg (CANCELED) 1 mg, Intravenous, EVERY 5 MIN PRN, Starting on Landy 05/07/23 at 0805, Until Landy 05/07/23 at 1254, Sleep, or prior to injection of local anesthetic, Hold for delirium/agitation. (Maximum dose 5 mg)., Intra-Operative (Intra-Procedure), Routine 0942 (Given - Provid er: Leticia Stanley RN) documented in this encounter Care Teams Engine Lathe Set Up Operator Relationship Specialty Start Date End Date None None PCP - General 05/05/23 09/14/23 documented as of this encounter
--- OUTSIDE RECORDS SUMMARY | 2024-04-20 12:49 | XMS_ITS | Clinical Summary ---
Author Organization [facility] [place] [address] Care Team Providers Care Flag Signaler Name Role Phone Gemma Samaniego APRN Primary Care Provider [phone] Allergies No known active allergies Medications Medication Sig Dispensed Refills Start Date End Date Status metoprolol tartrate (LOPRESSOR) 25 mg Tablet Take 25 mg by mouth 2 times daily. Active levonorgestrel-ethinyl estradiol (SEASONALE;JOLESSA) 0.15 mg-30 mcg , 91 tablet dose pack, 3 months Take 1 tablet by mouth daily. Active June.12/02, , 1.5-30 mg-mcg tablet 12/03/2022 Acti ve norethindrone-ethinyl estradiol (Microgestin 07/25) 1-20 mg-mcg tablet Take 1 tablet by mouth daily. Active Active Problems Problem Noted Date Diagnosed Date Ankle instability, right s/p brostrom recon, peroneus brevis repair, and OCD microfracture 05/07/23 ([place]) 05/07/2023 Exercise intolerance 03/11/2018 Assessment & Plan (03/11/2018 3:27 PM EDT): Ms. Nielsen has noted significant exercise tolerance as noted above. The etiology of this is unclear. Prior cardiac workup to this point has camilo unrevealing of a cause. I think it would be beneficial to proceed with an exercise stress test to get a sense of her true exercise tolerance and to evaluate the HR and BP response to exercise. Should this be unrevealing it may be beneficial to have her evaluated for a pulmonary cause given the complaints of breathing difficulties and wheezing. PVC's (premature ventricular contractions) 03/11 Assessment & Plan (03/11/2018 3:25 PM EDT): Ms. Nielsen was referred in part for evaluation of her PVCs. She has been started on metoprolol for this but she is unsure if it is helping. Reassuringly, her echocardiogram was normal and her ziopatch did not demonstrate any concerning ventricular tachycardias or high burden of PVCs. We spoke about the nature of these beats and frequent triggers such as stress, caffeine, lack of sleep, and alcohol. I advised her to continue her metoprolol (she finds this helps with her blood pressure and migraines) and to reduce stressors as much as possible. She feels comfortable with this plan and agrees with no further workup at this time for her PVCs. Encounters Date Type Department Care Team Description 02/19/2024 Telephone Hematology and Oncology at [address] [address] Cassidy He LG from Last 3 Months Immunizations Name Administration Dates Next Due HPV, Quadrivalent (Gardasil) 04/05/2007 Family History Medical History Relation Comments Cancer Maternal Grandfather throat Colorectal Cancer Maternal Grandfather Breast Cancer Mother bilateral mast; metastatic disease dx at 52 Relation Status Comments Maternal Grandfather Alive Maternal Half-Sister Alive Mother (Age 52) Sister Alive Social History Tobacco Use Types Packs/Day Years [...] or Adorno 05/11/2023 8: 49 AM EST Last Filed Vital Signs Vital Sign Reading Time Taken Comments Blood Pressure 126/69 05/07/2023 12:45 PM EDT Pulse 78 05/07/2023 9:49 AM EDT Temperature 36.5 ??C (97.7 ??F) 05/07/2023 12:13 PM E DT Respiratory Rate 16 05/07/2023 12:45 PM EDT Oxygen Saturation 98% 05/07/2023 9:49 AM EDT Inhaled Oxygen Concentration - - Weight 90.7 kg (200 lb) 09/15/2023 9:57 AM EDT Height 170.2 cm (5' 7) 09/15/2023 9:57 AM EDT Body Mass Index 31.32 09/15/2023 9:57 AM EDT Plan of Treatment Health Maintenance Due Date Last Done Comments HPV vaccine (2 - 3-dose series) 05/03/2007 HIV screen 2008 Hepatitis C Screening 2008 Lipid Screening 2008 Hepatitis B vaccine (0-59 yrs) (1) 2009 Tetanus/Diphtheria/Pertussis Vaccines (1 - Tdap) 06/21 HPV test 2020 PAP Smear 2020 Covid-19 Vaccine (1 - 2022-24 season) 2024 Influenza (Flu) vaccine (1 o f 1 - Influenza standard series) 03/06/2024 Medical Devices Implanted Type Area Content Checker Device Identifier Shelf Expiration Date Model / Serial / Lot Kit Fixation Drill Ankle Internalbrace ([id number]) (Autoreq) - [id number] Implanted:Qty: 1 on 05/07/2023 by Lilibeth Perry MD at PENDING SALE TO [facility] [employer] Right: Ankle [employer] [place] [id number] 02/02/2025 [id number] CP / / [id number] Care Teams Flag Signaler Relationship Specialty Start Date End Date Gemma Samaniego APRN [address] [place], [place] [address] PCP - General Family Medicine 09/15/23
--- OUTSIDE RECORDS SUMMARY | 2024-04-20 12:49 | XMS_ITS | Encounter Summary ---
Author Organization [facility] [place] [address] Care Team Providers Care Pharmaceutical Engineer Name Role Phone Unknown Primary Care Provider Unavailabl e Encounter Details Date Type Department Care Team (Late st Contact Info) Description 10/23/2022 Ancillary Procedure Radiology Library at [facility] [place] [address] Gemma Samaniego APRN [address] [place], [place] [id number] Social History Tobacco Use Types Packs/Day Years [...] FILM LIBRARY STORAGE ONLY DX ANKLE Routine 10/23/2022 12:00 AM EDT documented in this encounter Results * Film Library- Storage Only DX Ankle (10/23/2022 12:00 AM EDT) Narrative BANG GILLESPIE - 11/18/2022 2:55 PM EDT This exam is auto-finalizing. It's purpose is for storage only. Gemma Samaniego APRN IMG FILM LIBRARY ORD ERABLES VERNA [place], [place] documented in this encounter Visit Diagnoses Not on filedocumented in this encounter Care Teams Pharmaceutical Engineer Relationship Specialty Start Date End Date Unknown None PCP - General 04/05/18 05/04/23 documented as of this encounter
--- OUTSIDE RECORDS SUMMARY | 2024-04-20 12:49 | XMS_ITS | Encounter Summary ---
Author Organization [facility] Address [place] [id number] Care Team Providers Care Social Sciences Instructor Name Role Phone None Primary Care Provider Unavailabl e Encounter Details Date Type Department Care Team (Latest Contact Info) Description 05/19/2023 Travel Social History Tobacco Use Types Packs/Day Years Used Date Smoking Tobacco: Never Smokeless Tobacco: Never Alcohol Use Standard Drinks/Week Comments Yes 0 (1 standard drink = 0.6 oz pur e alcohol) A couple drinks/week IPV Inpatient Questions Answer Date Recorded Prevent [...] on file documented as of this encounter Visit Diagnoses Not on filedocumented in this encounter Care Teams Social Sciences Instructor Relationship Specialty Start Date End Date None None PCP - General 05/05/23 09/14/23 documented as of this encounter
--- OUTSIDE RECORDS SUMMARY | 2024-04-20 12:49 | XMS_ITS | Encounter Summary ---
Author Organization [facility] [place] [address] Care Team Providers Care Wild Life Manager Name Role Phone Unknown Primary Care Provider Unavailabl e Reason for Visit * Reason Comments Genetic Evaluation fam hx of breast can cer * Consultation (Routine) - Specialty Diagnoses / Procedures Referred By Natalia shepard Referred To Contact Hematology and Oncology Diagnoses Fx Breast Cancer Self mail [facility] Hem [address]c [address] [place] [address] Referral ID Status Reason Start Date Expiration Date V isits Requested Visits Authorized [id number] 08/16/2018 08/16/2019 1 1 Encounter Details Date Type Department Care Team (Late st Contact Info) Description 10/13/2018 3:00 PM EDT TH Visit (TeleHealth) [place]ology [place] [address] Nicole Will, [facility] HEMATOLOGY/[place] [address] Family history of malignant neoplasm of breast; Family history of malignant neoplasm of gastrointestinal tract Social History Tobacco Use Types Packs/Day Years Used Date Smoking Tobacco: Never Smokeless Tobacco: Never Sex and Gender Information Value Date Recorded Sex Assigned at Female 05/11/2023 8:49 AM EST Gender Identity Female 05/11/2023 8:49 AM EST Sexual Orientation Lesbian or Adorno 05/11/2023 8: 49 AM EST documented as of this encounter Progress Notes * Randy Camarena - 10/13/2018 3:00 PM EDT Ms. Nielsen was seen by Randy Camarena, Genetic Counseling City Recorder and Mojgan Will MS, [facility] in consultation to advise her regarding possible heritable predisposition to cancer. I spent 30 minutes of this face to face encounter with the patient gathering medical and family history and discussing the likelihood of a genetic predisposition to cancer and the option of genetic testing. Reason for referral/Chief complaint Cassandra Nielsen has a family history of breast, colon cancer, and throat cancer in first and second degree relatives. Medical history Age at 1st menses: 13 Age at 1st child: no biological children Menopause status: Pre Hormone replacement therapy use: no Current cancer screening: none Family History Problem Relation Age of Onset ??? Breast Cancer Mother 47 bilateral mast; metastatic disease dx at 52 ??? Colorectal Cancer Maternal Grandfather 65 ??? Cancer Maternal Grandfather 72 throat Maternal ethnic background is [place]. Paternal ethnic background is [place]. Genetic risk assessment Panel genetic testing for an inherited predisposition to cancer, including breast cancer was discussed. The risks, benefits and limitations of panel genetic testing were reviewed, specifically a highrate of identifying a variant of uncertain significance (~20%), lack of knowledge of cancer risk for newly identified, moderate risk genes included in the panel and lack of effective screening, as well as cancer risk for other cancers not observed in the family. The likelihood that Cassandra would be found to have a mutation in a cancer predisposition gene is high enough to offer the option of genetic testing. Cassandra opted for testing with [employer] Common Hereditary Cancers Panel, a next generation sequencing panel that simultaneously analyzes 47 genes, including BRCA1 and BRCA2, that contribute to increased risk for cancer, including BRCA1/2. Cassandra was consented. Cassandra Nielsen will have a benefits investigation prior to [facility] processing her sample that was drawn and sent to their lab. Testing will take approximately 3 weeks. Cassandra will be contacted via telephone once her test results become available. If positive, we will schedule an in person follow-up appointment. At that time, we will discuss with Cassandra the implications that this test result may have for her, as well luisa family members. We will also provide Cassandra with screening guidelines for cancer prevention and early detection, as well as answer any questions she may have. documented in this encounter Plan of Treatment Not on file documented as of this encounter Visit Diagnoses Diagnosis Family history of malignant neoplasm of breast Family history of malignant neoplasm of gastrointestinal tract documented in this encounter Care Teams Wild Life Manager Relationship Specialty Start Date End Date Unknown None PCP - General 04/05/18 05/04/23 documented as of this encounter
--- OUTSIDE RECORDS SUMMARY | 2024-04-20 12:49 | XMS_ITS | Encounter Summary ---
Author Organization [facility] [place] [address] Care Team Providers Care Grocery Clerk Name Role Phone Gemma Samaniego APRN Primary Care Provider [phone] Encounter Details Date Type Department Care Team ([facility] Contact Info) Description 02/19/2024 Telephone Hematology and Oncology at [address] [address] Cassidy He, [facility] [place] [address] Social History Tobacco Use Types Packs/Day Years [...] AM EST documented as of this encounter Miscellaneous Notes * Telephone Encounter - Cassidy He LGC - 02/19/2024 4:12 PM EDT Called and spoke to Cassandra regarding genetic testing she had performed in 2019. Cassandra informedour office that her sister underwent genetic testing in 2020 that was positive for a pathogenic PALB2 mutation, specifically c.3113G>A (p.[id number]*). Cassandra was wondering if her prior genetic testing included the PALB2 gene. I reviewed her report and called [facility] to confirm that her genetic testing included the PALB2 gene, and per [facility] the c.3113G>A mutation was within testing range. Therefore, Cassandra is negative for the known PALB2 mutation seen in her sister. I answered all questions Cassandra had, and informed her that she can contact our office with any questions she may have in the future. documented in this encounter Plan of Treatment Not on file documented as of this encounter Visit Diagnoses Not on filedocumented in this encounter Care Teams Grocery Clerk Relationship Specialty Start Date End Date Gemma Samaniego APRN [address] [place] [address] PCP - General Family Medicine 09/15/23 documented as of this encounter
--- OUTSIDE RECORDS SUMMARY | 2024-04-20 12:49 | XMS_ITS | Encounter Summary ---
[place] [address] Care Team Providers Care Produce Laborer Name Role Phone Unknown Primary Care Provider Unavailabl e Encounter Details Date Type Department Care Team (Latest Contact Info) Description 02/18/2023 Travel Social History Tobacco Use Types Packs/Day [...] on filedocumented in this encounter Care Teams Produce Laborer Relationship Specialty Start Date End Date Unknown None PCP - General 04/05/18 05/04/23 documented as of this encounter
--- OUTSIDE RECORDS SUMMARY | 2024-04-20 12:49 | XMS_ITS | Encounter Summary ---
[place] [address] Care Team Providers Care Provider Engagement Executive Name Role Phone Tyler Skelton MD Primary Care Provider Encounter Details Date Type Department Care Team (Late st Contact Info) Description 06/14/2010 11:30 AM EST Follow-Up Obstetrics [place] [phone] Libertad Shafer APRN [facility] [place] [address] Discharge Disposition: Home Social History Tobacco Use Types Packs/Day Years [...] on filedocumented in this encounter Care Teams Provider Engagement Executive Relationship Specialty Start Date End Date Tyler Skelton MD [address] [place] [address] PCP - General 05/28/10 03/10/18 documented as of this encounter
--- OUTSIDE RECORDS SUMMARY | 2024-04-20 12:49 | XMS_ITS | Encounter Summary ---
Author Organization [place] [address] Care Team Providers Care Sheet Combining Operator Name Role Phone None Primary Care Provider Unavailabl e Encounter Details Date Type Department Care Team (Late st Contact Info) Description 05/08/2023 Telephone [place] [phone] Warren Bellamy PA [facility] [place] [address] Social History Tobacco Use Types Packs/Day Years [...] encounter Miscellaneous Notes * Telephone Encounter - Warren Bellamy PA - 05/08/2023 10:40 AM EDT I spoke with the patient who is doing very well. She is controlling her pain but is afraid of taking oxycodone because it makes her so nauseas. I have prescribed Zofran to take for the nausea when she feels she needs oxy. She appreciated her care and the call and will reach out with further questions documented in this encounter Plan of Treatment Not on file documented as of this encounter Visit Diagnoses Not on filedocumented in this encounter Care Teams Sheet Combining Operator Relationship Specialty Start Date End Date None None PCP - General 05/05/23 09/14/23 documented as of this encounter
--- OUTSIDE RECORDS SUMMARY | 2024-04-20 12:49 | XMS_ITS | Encounter Summary ---
Author Organization [facility] Address [facility] [place] [address] Care Team Providers Care Coil Inspector Name Role Phone Unknown Primary Care Provider Unavailabl e Encounter Details Date Type Department Care Team (Late st Contact Info) Description 01/17/2020 12:05 AM EDT Ancillary Procedure Radiology Library at [facility] [place] [address] Gemma Samaniego APRN [address] [place], [place] [address] Social History Tobacco Use Types Packs/Day Years [...] Diagnosis Comments FILM LIBRARY STORAGE ONLY DX KNEE Routine 01/17/2020 12:05 AM EDT documented in this encounter Results * Film Library- Storage Only DX Knee (01/17/2020 12:05 AM EDT) Narrative BANG GILLESPIE - 11/18/2022 3:04 PM EDT This exam is auto-finalizing. It's purpose is for storage only. Gemma Samaniego APRN IMG FILM LIBRARY ORD ERABLES VER[place], [place] documented in this encounter Visit Diagnoses Not on filedocumented in this encounter Care Teams Coil Inspector Relationship Specialty Start Date End Date Unknown None PCP - General 04/05/18 05/04/23 documented as of this encounter
--- OUTSIDE RECORDS SUMMARY | 2024-04-20 12:49 | XMS_ITS | Encounter Summary ---
[place] [address] Care Team Providers Care Production Service Manager Name Role Phone Unknown Primary Care Provider Unavailabl e Encounter Details Date Type Department Care Team (Late st Contact Info) Description 10/13/2018 3:30 PM EDT Infusion Hematology Oncology at [address] [phone] Family history of malignant neoplasm of breast Social History Tobacco Use Types Packs/Day Years [...] Family history of malignant neoplasm of breast documented in this encounter Care Teams Production Service Manager Relationship Specialty Start Date End Date Unknown None PCP - General 04/05/18 05/04/23 documented as of this encounter
--- OUTSIDE RECORDS SUMMARY | 2024-04-20 12:49 | XMS_ITS | Encounter Summary ---
Author Organization [facility] [place] [address] Care Team Providers Care Funeral Driver Name Role Phone Unknown Primary Care Provider Unavailabl e Encounter Details Date Type Department Care Team (Late st Contact Info) Description 10/07/2018 Notes Only Hematology [place] [address] Ranjit Becker MD [facility] DR HEMATOLOGY/[place] [address] Social History Tobacco Use Types Packs/Day Years Used Date Smoking Tobacco: Never Smokeless Tobacco: Never Sex and Gender Information Value Date Recorded Sex Assigned at Female 05/11/2023 8:49 AM EST Gender Identity Female 05/11/2023 8:49 AM EST Sexual Orientation Lesbian or Adorno 05/11/2023 8: 49 AM EST documented as of this encounter Progress Notes * Ranjit Becker MD - 10/07/2018 10:31 AM EDT I have reviewed the patient's record and given personal and/or family history of cancer she should be seen by genetic counselor. This is scheduled for next week. documented in this encounter Plan of Treatment Not on file documented as of this encounter Visit Diagnoses Not on filedocumented in this encounter Care Teams Funeral Driver Relationship Specialty Start Date End Date Unknown None PCP - General 04/05/18 05/04/23 documented as of this encounter
--- OUTSIDE RECORDS SUMMARY | 2024-04-20 12:49 | XMS_ITS | Clinical Summary ---
Author Organization [facility] Address [address] [place] [address] Care Team Providers Care Legal Document Specialist Name Role Phone Unavailable Primary Care Provider Unavailabl e Social History Tobacco Use Types Packs/Day Years Used Date Smoking Tobacco: Never Assessed Interpersonal Safety Answer Date Record ed Physically Hurt Never 06/15/2020 Verbally Threaten Not on file 06/15/2020 Sex and Gender Information Value Date Recorded Sex Assigned at Not on file Gender Identity Not on file Sexual Orientation Not on file Plan of Treatment Health Maintenance Due Date Last Done Comments Hepatitis C Screen 1990 Hepatitis B Vaccine (1 of 3 - 19+ 3-dose series) 06/21 COVID-19 Vaccine (2022-24 season) 2023
--- OUTSIDE RECORDS SUMMARY | 2024-04-20 12:49 | XMS_ITS | Encounter Summary ---
[place] [address] Care Team Providers Care Asset Analyst Name Role Phone Unknown Primary Care Provider Unavailabl e Encounter Details Date Type Department Care Team (Late st Contact Info) Description 10/25/2018 Telephone Hematology [place] [phone] Randy Camarena, [facility] Social History Tobacco Use Types Packs/Day Years Used Date Smoking Tobacco: Never Smokeless Tobacco: Never Sex and Gender Information Value Date Recorded Sex Assigned at Female 05/11/2023 8:49 AM EST Gender Identity Female 05/11/2023 8:49 AM EST Sexual Orientation Lesbian or Adorno 05/11/2023 8: 49 AM EST documented as of this encounter Miscellaneous Notes * Telephone Encounter - Randy Caamrena - 10/25/2018 11:44 AM EDT Left message asking Cassandra to call me back to go over her/his genetic test results. documented in this encounter Plan of Treatment Not on file documented as of this encounter Visit Diagnoses Not on filedocumented in this encounter Care Teams Asset Analyst Relationship Specialty Start Date End Date Unknown None PCP - General 04/05/18 05/04/23 documented as of this encounter
--- OUTSIDE RECORDS SUMMARY | 2024-04-20 12:49 | XMS_ITS | Encounter Summary ---
Author Organization [facility] [place] [address] Care Team Providers Care Ladle Handler Name Role Phone Libby Reyes MD Primary Care Provider [phone] Encounter Details Date Type Department Care Team (Late st Contact Info) Description 03/11/2018 2:00 PM EDT Office Visit Cardiology at [address] [phone] Emile Daily MD [facility] [place] [address] Adan Kenyon MD [facility] [place] [address] Exercise intolerance; PVC's (premature ventricular contractions) Social History Tobacco Use Types Packs/Day Years [...] Sign Reading Time Taken Comments Blood Pressure 120/78 03/11/2018 2:21 PM EDT Pulse 82 03/11/2018 1:47 PM EDT Temperature - - Respiratory Rate - - Oxygen Saturation 96% 03/11/2018 1:47 PM EDT Inhaled Oxygen Concentration - - Weight 71.7 kg (158 lb) 03/11/2018 1:47 PM EDT Height - - Body Mass Index - - documented in this encounter Progress Notes * Adan Kenyon MD - 03/11/2018 2:00 PM EDT Images from the original note were not included. [facility] [place] [address] CARDIOLOGY OUTPATIENT NOTE PRIMARY CARE PROVIDER: Libby Reyes MD REFERRING PROVIDER: Tyler Skelton PROBLEM LIST: Patient Active Problem List Diagnosis ??? Exercise intolerance ??? PVC's (premature ventricular contractions) MEDICATIONS: Current Outpatient Prescriptions Medication Sig Dispense Refill ??? metoprolol tartrate (LOPRESSOR) 25 mg Tablet Take 25 mg by mouth 2 times daily. ??? levonorgestrel-ethinyl estradiol (SEASONALE;JOLESSA) 0.15 mg-30 mcg , 91 tablet dose pack, 3 months Take 1 tablet by mouth daily. No current facility-administered medications for this visit. Subjective: Patient ID: Cassandra Nielsen is a 27 y.o. female. HPI Was working at her desk (works at the [employer] at [employer]) and noticed fluttering in her chest. She had some associated shortness of breath and spoke to medical at the [employer]. She was subsequently referred to the ED at [facility] where she was evaluated and found to have PVCs. An echocardiogram and ziopatch were completed the results of which can be seen below. She has been taking metoprolol tartrate 25mg once daily since December and has noticed that things haven't significantly changed. She has noted the last month and a half that the palpitations have been 'worse'. Overall the palpitations have not bothered here very much. Her more pressing issue is that she has noticed increasing exercise intolerance. For the last 6-8 months she has noted a significant decrease in her exercise tolerance to the pointwhere she cannot jog for more than 2 minutes nor can she bike for more than a half mile or so. She has noticed that this has affected her job performance at the [employer]. She also has significant profound tachycardia to 170 with minimal exertion. She has noted significant wheezing and shortness of breath during exertion. If she presses on with exercise she has significant lightheadedness profound enough to require her to stop. This intolerance has preceded her beta lambert initiation. Her migraines have worsened recently and she has had difficulty sleeping recently (3 hrs a night). Review of Systems Constitutional: Negative for fever and unexpected weight change. Respiratory: Positive for shortness of breath and wheezing. Cardiovascular: Positive for palpitations. Negative for chest pain. Gastrointestinal: Negative for abdominal pain. Endocrine: Negative for polyuria. Genitourinary: Negative for dysuria and frequency. Musculoskeletal: Positive for back pain (chronic back pain). Skin: Negative for rash. Neurological: Negative for syncope and light-headedness. Psychiatric/Behavioral: Negative for confusion. Family history: Mother of breast cancer. Unsure of paternal history. Social history: Work at the [employer]f, has been working there for 5 years. Never smoker, no tobacco, no vaping. 1-2 drinks per day during the week 3 step kids (10, 9, 3), getting next April. Spouse works for [employer] and is otherwise healthy. Objective: Physical Exam Constitutional: She appears well-developed and well-nourished. No distress. Cardiovascular: Normal rate, regular rhythm, normal heart sounds and intact distal pulses. No murmur heard. Pulmonary/Chest: Effort normal and breath sounds normal. No respiratory distress. She has no wheezes. She has no rales. Abdominal: Soft. She exhibits no distension. Musculoskeletal: Normal range of motion. She exhibits no edema. Neurological: She is alert. Skin: Skin is warm and dry. Psychiatric: She has a normal mood and affect. Her behavior is normal. Most Recent Vitals: 03/11/18 1421 BP: 120/78 Pulse: SpO2: TTE 12/2017: 1. LV size normal, systolic function normal, (EF estimated at 55-60%) 2.Mild mitral regurgitation 3. RV cavity size, wall function, and systolic function normal 4. No ASD or PFO identified 5. Moderate tricuspid regurgitation 6. PASP of 20-30 mmHg Ziopatch 01/2018 demonstrated 4% burden of PVCs, occasional couplets, one 4 beat run of NSVT Assessment and Plan: PVC's (premature ventricular contractions) Ms. Nielsen was referred in part for evaluation of her PVCs. She has been started on metoprolol forthis but she is unsure if it is [...] workup at this time for her PVCs. Exercise intolerance Ms. Nielsen has noted significant exercise tolerance as noted above. The etiology of this is unclear. Prior cardiac workup to this point has camilo unrevealing of a cause. I think it would be beneficialto proceed with an exercise stress test to get a sense of her true exercise tolerance and to evaluate the HR and BP response to exercise. Should this be unrevealing it may be beneficial to have her evaluated for a pulmonary cause given the complaints of breathing difficulties and wheezing. Thank you for the opportunity to participate in this patient's cardiovascular care. All questions were answered and I look forward to the next visit. Adan Kenyon MD 03/11/2018 documented in this encounter Miscellaneous Notes * Assessment & Plan Note - Adan Kenyon MD - 03/11/2018 3:25 PM EDT Associated Problem(s): Exercise intolerance Ms. Nielsen has noted significant exercise tolerance as noted above. The etiology of this is unclear. Prior cardiac workup to this point has camilo unrevealing of a cause. I think it would be beneficialto proceed with an exercise stress test to get a sense of her true exercise tolerance and to evaluate the HR and BP response to exercise. Should this be unrevealing it may be beneficial to have her evaluated for a pulmonary cause given the complaints of breathing difficulties and wheezing. * Assessment & Plan Note - Adan Kenyon MD - 03/11/2018 3:23 PM EDT Associated Problem(s): PVC's (premature ventricular contractions) Ms. Nielsen was referred in part for evaluation of her PVCs. She has been started on metoprolol forthis but she is unsure if it is [...] workup at this time for her PVCs. documented in this encounter Plan of Treatment Not on file documented as of this encounter Results * Stress Test, Exercise (Treadmill) (04/30/2018 1:48 PM EDT) Anatomical Region Laterality Modality Other Emile Daily MD [facility] documented in this encounter Visit Diagnoses Diagnosis Exercise intolerance Other general symptoms PVC's (premature ventricular contractions) Other premature beats documented in this encounter Care Teams Ladle Handler Relationship Specialty Start Date End Date Libby Reyes MD [facility] [address] [place] [address] PCP - General Family Medicine 03/11/18 04/01/18 documented as of this encounter
--- OUTSIDE RECORDS SUMMARY | 2024-04-20 12:49 | XMS_ITS | Encounter Summary ---
Author Organization [facility] Address [facility] [place] [address] Care Team Providers Care Welder Tech Name Role Phone Unknown Primary Care Provider Unavailabl e Encounter Details Date Type Department Care Team (Latest Contact Info) Description 02/18/2023 9:58 AM EDT - 02/18/2023 11:59 PM EDT Hospital Encounter XRay at [address] [place] [address] Right ankle pain, unspecified chronicity Discharge Disposition: Home Social History Tobacco Use Types Packs/Day Years Used Date Smoking Tobacco: Never Assessed Sex and Gender Information Value Date Recorded Sex Assigned at Female 05/11/2023 8:49 AM EST Gender Identity Female 05/11/2023 8:49 AM EST Sexual Orientation Lesbian or Adorno 05/11/2023 8: 49 AM EST documented as of this encounter Medications at Time of Discharge Medication Sig Dispensed Refills Start Date End Date .12/02, 21, 1.5-30 mg-mcg tablet 12/03/2022 metoprolol tartrate (LOPRESSOR) 25 mg Tablet Take 25 mg by mouth 2 times daily. levonorgestrel-ethinyl estradiol (SEASONALE;JOLESSA) 0.15 mg-30 mcg , 91 tablet dose pack, 3 months Take 1 tablet by mouth daily. documented as of this encounter Plan of Treatment Not on file documented as of this encounter Procedures Procedure Name Priority Date/Time Associated Diagnosis Comments XR ANKLE MIN 3 VIEWS RIGHT Routine 02/18/2023 10:07 AM EDT Right ankle pain, unspecified chronicity documented in this encounter Results * XR Ankle Min 3 views Right (Generic) (02/18/2023 10:07 AM EDT) Anatomical Region Laterality Modality Ankle Right Digital Radiogra phy Impressions 02/18/2023 1:03 PM EDT Right pes planus without acute ankle abnormality. Thank you for letting us participate in the care of this patient. ??If you are a health care provider and have any questions regarding this report, please contact the number below. ??For patients who have questions please contact the health child care associate that requested your imaging first. ? Electronically signed by: Magdalena Chisholm MD, [facility] ([phone]), at 02/18/2023 1:03 PM Narrative 02/18/2023 1:03 PM EDT EXAMINATION: XR ANKLE MIN 3 VIEWS RIGHT (GENERIC) CLINICAL HISTORY: right ankle pain Perform WB TECHNIQUE: AP, oblique and lateral weightbearing views right ankle views RIGHT ankle COMPARISON: Radiographs October 23, 2022 and MRI November 13, 2022 FINDINGS: Bones are intact with normal mineralization, noting normal variant os trigonum. Small enthesophyte at the medial malleolar origin of flexor retinaculum. No erosion or periostitis. Pes planus alignment. Spacing and alignment are preserved at the syndesmosis, mortise and subtalar joints. No focal soft tissue abnormality. Procedure Note Magdalena Chisholm MD - 02/18/2023 EXAMINATION: XR ANKLE MIN 3 VIEWS RIGHT (GENERIC) CLINICAL HISTORY: right ankle pain Perform WB TECHNIQUE: AP, oblique and lateral weightbearing views right ankle views RIGHTankle COMPARISON: Radiographs October 23, 2022 and MRI November 13, 2022 FINDINGS: Bones are intact with normal mineralization, noting normal variant ostrigonum. Small enthesophyte at the medial malleolar origin of flexor retinaculum.No erosion or periostitis. Pes planus alignment. Spacing and alignment are preserved at thesyndesmosis, mortise and subtalar joints. No focal soft tissue abnormality. IMPRESSION Right pes planus without acute ankle abnormality. Thank you for letting us participate in the care of this patient. If youare a health care provider and have any questions regarding this report,please contact the number below. For patients who have questions please contactthe health child care associate that requested your imaging first. Electronically signed by: Magdalena Chisholm MD, [facility]([phone]), at 02/18/2023 1:03 PM Lilibeth Perry MD IMG DX ORDERABLES documented in this encounter Visit Diagnoses Diagnosis Right ankle pain, unspecified chronicity documented in this encounter Care Teams Welder Tech Relationship Specialty Start Date End Date Unknown None PCP - General 04/05/18 05/04/23 documented as of this encounter
--- OUTSIDE RECORDS SUMMARY | 2024-04-20 12:49 | XMS_ITS | Encounter Summary ---
[place] [address] Care Team Providers Care Coo Name Role Phone Unknown Primary Care Provider Unavailabl e Encounter Details Date Type Department Care Team (Late st Contact Info) Description 11/03/2018 Telephone Hematology [place] [phone] Randy Camarena, [facility] Social History Tobacco Use Types Packs/Day Years Used Date Smoking Tobacco: Never Smokeless Tobacco: Never Sex and Gender Information Value Date Recorded Sex Assigned at Female 05/11/2023 8:49 AM EST Gender Identity Female 05/11/2023 8:49 AM EST Sexual Orientation Lesbian or Adorno 05/11/2023 8: 49 AM EST documented as of this encounter Miscellaneous Notes * Telephone Encounter - Randy Camarena - 11/03/2018 3:30 PM EDT This test result was discussed with the patient by phone. A copy of a letter sent to the patient containing these results is provided below. Please be advised that [place] law requires that allhealth care workers respect the confidentiality of this information and not pass it along to other health care providers, insurance companies, or individuals without the written permission of the patient. The [facility]amil[facility] Cancer Program welcomes any questions about these matters. Our phone number is: [phone]. On 10/13/18, Cassandra underwent genetic testing for a hereditary predisposition to common hereditarycancers, including breast, gynecologic and gastrointestinal. Following are the results of this test. Result: [facility]'s Common Hereditary Cancers Panel showed no mutation was detected. This means that Khanh not carry a mutation in the genes detectable by this test. The following genes were evaluated for sequence changes and exonic deletions/duplications: APC, MABLE, AXIN2, BARD1, BMPR1A, BRCA1, BRCA2, BRIP1, CDH1, CDK4, CDKN2A (p14ARF), CDKN2A ([id number]), CHEK2, CTNNA1, DICER1, EPCAM (EPCAM: Deletion/duplication testing only ([id number]), GREM1 (GREM1: Promoter region deletion/duplication testing only.), KIT, MEN1, MLH1, MSH2, MSH3, MSH6, MUTYH, NBN, NF1, PALB2, PDGFRA, PMS2, POLD1, POLE, PTEN, RAD50, RAD51C, RAD51D, SDHB, SDHC, SDHD, SMAD4, SMARCA4, STK11, TP53, TSC1, TSC2, VHL. The following genes were evaluated for sequence changes only: HOXB13 (c.251G>A, p.Cum95Wky variant only), NTHL1 (NTHL1: Deletion/duplication analysis is not offered for this gene ([id number]), and SDHA. 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 We are enclosing a printed copy of Cassandra's test results. Interpretation: It is unclear at this time whether the NTHL1 variant of uncertain significance identified in Cassandra is a cancer associated mutation or is a benign change in the gene with no increased cancer risks.[facility] is continually collecting and analyzing their data, in an effort to reclassify these variants as either cancer causing mutations or benign changes in a gene (also called polymorphisms). We will be contacted by the laboratory when reclassification is made and we would then notify Cassandra. Because the genetic basis, if any, of the breast cancer in Cassandra's family has not been identified, this negative test result does not necessarily mean that Cassandra is not at a higher risk for developing cancer (i.e. not attributable to an inherited predisposition). This is because of two important limitations of the test. First, not all inherited predisposition to cancer is attributable to the genes tested by this panel. Research has identified other genes that when mutated can increase one???s risk of cancer. Second, a small percentage of mutations in genes tested by this panel may be missed by current technology. Additional genetic testing for Cassandra and her family is not recommended at this time. Specifically, family members should not be tested for the variant of uncertain significance in the NTHL1 gene. Screening Recommendations Based on genetic test results and personal and/or family history, we recommend: Breast cancer screening ?? Monthly self breast exams and annual clinical breast exams ?? Annual tomosynthesis (3D mammogram) starting at ages 37-40. ?? In addition, based on her lifetime breast cancer risk estimate of 28% per Tyrer-Cuzick model, Cassandra may consider annual breast MRI screening. Ideally, this should be performed at a facility that has breast MRI directed biopsy capability. Cassandra should be aware of a high false positive rate associated with breast MRI screening, limited data supporting this modality for screening women at her level of risk, as well as possible lack of insurance coverage. Ovarian cancer screening ?? We do not recommend any special screening studies in addition to an annual SURVEILLANCE SYSTEMS ENGINEER exam at this time. Other cancer screening ?? Colonoscopy screening starting at age 50/Periodic colonoscopy screening as recommended by Cassandra's clay products glazer. ?? Annual dermatologic/skin exams documented in this encounter Plan of Treatment Not on file documented as of this encounter Visit Diagnoses Not on filedocumented in this encounter Care Teams Coo Relationship Specialty Start Date End Date Unknown None PCP - General 04/05/18 05/04/23 documented as of this encounter
--- OUTSIDE RECORDS SUMMARY | 2024-04-20 12:49 | XMS_ITS | Referral Summary ---
Author Organization [facility] Address [address] [place] [address] Care Team Providers Care Minute Clerk For Basic Traffic Name Role Phone Unavailable Primary Care Provider [...] Orientation Not on file Plan of Treatment Not on file
--- OUTSIDE RECORDS SUMMARY | 2024-04-20 12:49 | XMS_ITS | Encounter Summary ---
Author Organization [facility] [place] [address] Care Team Providers Care Air Conditioning Mechanic Industrial Name Role Phone None Primary Care Provider Unavailabl e Encounter Details Date Type Department Care Team (Late st Contact Info) Description 05/08/2023 Orders [place] [address] Warren Bellamy, [place] [facility] [place] [address] Right ankle pain, unspecified chronicity Social History Tobacco Use Types Packs/Day Years Used Date Smoking Tobacco: Never Smokeless Tobacco: Never Alcohol Use Standard Drinks/Week Comments Yes 0 (1 standard drink = 0.6 oz pur e alcohol) A couple drinks/week [facility] Inpatient Questions Answer Date Recorded Prevent Contact [...] as of this encounter Visit Diagnoses Diagnosis Right ankle pain, unspecified chronicity documented in this encounter Care Teams Air Conditioning Mechanic Industrial Relationship Specialty Start Date End Date None None PCP - General 05/05/23 09/14/23 documented as of this encounter
--- OUTSIDE RECORDS SUMMARY | 2024-04-20 12:49 | XMS_ITS | Encounter Summary ---
Author Organization [facility] [place] [address] Care Team Providers Care Shipping And Receiving Name Role Phone None Primary Care Provider Unavailabl e Reason for Visit * Reason Comments Follow-up Right ankle scope/de carrole 05-07-23 Encounter Details Date Type Department Care Team (Latest Contact Info) Description 07/15/2023 10:00 AM EST [place] [address] Warren Bellamy PA [facility] [place] [address] Ankle instability, right s/p brostrom recon, peroneus brevis repair, and OCD microfracture 05/07/23 ([place]) Social History Tobacco Use Types Packs/Day Years Used Date Smoking Tobacco: Never Smokeless Tobacco: Never Alcohol Use Standard Drinks/Week Comments Yes 0 (1 standard drink = 0.6 oz pur e alcohol) A couple drinks/week [facility] Inpatient Questions Answer Date Recorded Prevent Contact [...] Sign Reading Time Taken Comments Blood Pressure - - Pulse - - Temperature - - Respiratory Rate - - Oxygen Saturation - - Inhaled Oxygen Concentration - - Weight 90.7 kg (200 lb) 07/15/2023 10:04 AM EST Height 170.2 cm (5' 7) 07/15/2023 10:04 AM EST Body Mass Index 31.32 07/15/2023 10:04 AM EST documented in this encounter Progress Notes * Warren Bellamy PA - 07/15/2023 10:00 AM EST Images from the original note were not included. PATIENT NAME: Cassandra Brizuela AGE: 33 y.o. MR#: [id number] DATE OF VISIT: 07/15/2023 STAFF: Warren Bellamy PA-C FOLLOW UP FOR: Right ankle arthroscopy with extensive debridement and treatment of lateral talar dome osteochondral defect Right ankle Brostr??m stabilization with internal brace augmentation Right ankle peroneus brevis primary repair 05/07/[address] Perry HISTORY OF PRESENT ILLNESS: Ms. Brizuela is a 33 y.o. female who comes into clinic today for follow up of the above surgery. She is using her bowflex machine and squatting without discomfort. She does have a bit of soreness left in the ankle after walking several miles. She is working from home at [employer]. She has been working from home since the 01 of June on light duty. She is happy with the progression and progress she has made. Medications and Allergies were reviewed in eD-H PAST MEDICAL HX: No past medical history on file. Patient Active Problem List Diagnosis Code Exercise intolerance R68.89 PVC's (premature ventricular contractions) I49.3 Ankle instability, right s/p brostrom recon, peroneus brevis repair, and OCD microfracture 05/07/23 ([place]) M25.371 PAST SURGICAL HX: Past Surgical History: Procedure Laterality Date PRO ANKLE SCOPE, EXTENS DEBRIDEMNT Right 05/07/2023 ARTHROSCOPY ANKLE, EXTENSIVE DEBRIDEMENT (WRVU 8.49) performed by Lilibeth Perry MD at [facility] PRO REPAIR COLLAT ANKLE LIGMNT, SECONDARY Right 05/07/2023 ANKLE LIGAMENT REPAIR, SECONDARY (BROSTROM) (WRVU 9.61) performed by Lilibeth Perry MD at [facility] PRO REPAIR FLEX LEG TENDON, PRIM, EA Right 05/07/2023 FLEXOR TENDON REPAIR, LEG, PRIMARY (WRVU 5.12) performed by Lilibeth Perry MD at [facility] FAMILY HX: Family History Problem Relation Age of Onset Breast Cancer Mother 47 bilateral mast; metastatic disease dx at 52 Colorectal Cancer Maternal Grandfather 65 Cancer Maternal Grandfather 72 throat SOCIAL HX: Social History Occupational History Not on file Tobacco Use Smoking status: Never Smokeless tobacco: Never Substance and Sexual Activity Alcohol use: Yes Comment: A couple drinks/week Drug use: Not Currently Sexual activity: Not on file 06/03/2023 General Health, Prior Treatments, PreExisting Condition, Health Habits, About You PROMIS-10 General Health Very Good PROMIS-10 Quality of Life Very Good PROMIS-10 Physical Health Good PROMIS-10 Mental Health Good PROMIS-10 Social Activity Very Good PROMIS-10 Everyday Activities A little PROMIS-10 Pain 4 PROMIS-10 Fatigue Moderate PROMIS-10 Social Roles Fair PROMIS-10 Anxious or Depressed Sometimes PROMIS PHYSICAL SCORE (range 16-68) 37.4 PROMIS MENTAL SCORE (range 21-68) 48.3 No data to display No data to display PHYSICAL EXAM: Ms. Brizuela is a 33 y.o. female General appearance: in no acute distress, alert, cooperative Psych: cooperative with exam, appropriate Head: normocephalic, atraumatic EENT: EOMI grossly intact Neck: supple, trachea midline Cardiac: regular rate and rhythm by peripheral pulse Lungs: no extra work of breathing Musculoskeletal: Right foot and ankle Inspection: Midfoot arch: neutral Hindfoot: neutral The skin over the foot and ankle is pink in color, warm and well perfused without calluses or lesions present. The incision sites are healing well with the skin well approximated, no signs of drainage, undermining, tunneling, or wound dehiscence. ROM: Dorsiflexion with knee extended: 5 degrees Plantarflexion: 40 degrees Inversion: 25 degrees Eversion: 15 degrees Strength: 5/5 and no pain with Ankle dorsiflexion: 5/5 and no pain with Ankle plantarflexion: 5/5 and no pain Ankle inversion: 5/5 and no pain or subluxation of the peroneals with ankle eversion with the toes pointed. Special tests: Anterior drawer test: negative without guarding Neurovascular: Brisk capillary refill at the distal most aspect of the hallux and lesser toes Posterior tibial artery: 2+ Dorsalis pedis artery: 2+ Sural Nerve: Sensation intact to light touch Saphenous Nerve: Sensation intact to light and gross touch Tibial Nerve: Sensation intact to light and gross touch Deep peroneal Nerve: Sensation intact to light and gross touch Superficial peroneal Nerve: Sensation intact to light and gross touch DIAGNOSTIC STUDIES: n/a ASSESSMENT: S/p the above procedure. Doing well. PLAN: The patient has been on light duty since June [id number]. I am ok with her continuing this and then returning full duty once she has completing physical therapy. She should progress her activity as her symptoms dictate meaning she should not push past discomfort and she should not progress eractivity if she is feeling sore in the morning. I would like to see her back in 2 months for one final functional evaluation but may cancel if she feels she is doing well. The patient expressed agreement with and understanding of this plan of care. The patient understands to contact us if they have any other questions or concerns. The above documentation was completed using Fonemesh voice recognition software. Warren Bellamy PA-C, MPAS Department of Orthopaedics [facility] Pager [phone] documented in this encounter Plan of Treatment Not on file documented as of this encounter Visit Diagnoses Diagnosis Ankle instability, right s/p brostrom recon, peroneus brevis repair, and OCD microfracture 05/07/23 ([place]) documented in this encounter Care Teams Shipping And Receiving Relationship Specialty Start Date End Date None None PCP - General 05/05/23 09/14/23 documented as of this encounter
--- OUTSIDE RECORDS SUMMARY | 2024-04-20 12:49 | XMS_ITS | Encounter Summary ---
Author Organization [facility] [place] [address] Care Team Providers Care Lamp Stack Developer Name Role Phone Gemma Samaniego APRN Primary Care Provider [phone] Reason for Visit * Reason Comments Follow Up Surgery DOS:05/07/23 RIGHT AN KLE SCOPE/DEBRIDE/LIGAMENT REPAIR (FARO) Encounter Details Date Type Department Care Team (Latest Contact Info) Description 09/15/2023 10:00 AM EDT [place] [phone] Warren Bellamy PA [facility] [place] [address] Ankle instability, right s/p brostrom recon, peroneus [...] Mass Index 31.32 09/15/2023 9:57 AM EDT documented in this encounter Progress Notes * Warren Bellamy PA - 09/15/2023 10:00 AM EDT Images from the original note were not included. PATIENT NAME: Cassandra Brizuela AGE: 33 y.o. MR#: [id number] DATE OF VISIT: 09/15/2023 STAFF: Warren Bellamy PA-C FOLLOW UP FOR: [...] up of the above surgery. She is doing very well overall. She still has some twinging in the top of her foot on occasion when she does push- ups or lunges. Overall she feels much more stable on her feet and has been able to return to exercise. Medications and Allergies were reviewed in eD-H [...] 8.49) performed by Lilibeth Perry MD at [facility] PRO REPAIR COLLAT ANKLE LIGMNT, SECONDARY Right 05/07/2023 ANKLE LIGAMENT REPAIR, SECONDARY (BROSTROM) (WRVU 9.61) performed by Lilibeth Perry MD at [facility] PRO REPAIR FLEX LEG TENDON, PRIM, EA Right 05/07/2023 FLEXOR TENDON REPAIR, LEG, PRIMARY (WRVU 5.12) performed by Lilibeth Perry MD at [facility] FAMILY HX: Family History Problem [...] Not Currently Sexual activity: Not on file 07/15/2023 General Health, Prior Treatments, PreExisting Condition, Health Habits, About You PROMIS-10 General Health Very Good PROMIS-10 Quality of Life Good PROMIS-10 Physical Health Good PROMIS-10 Mental Health Good PROMIS-10 Social Activity Very Good PROMIS-10 Everyday Activities Completely PROMIS-10 Pain 2 PROMIS-10 Fatigue Mild PROMIS-10 Social Roles Very Good PROMIS-10 Anxious or Depressed Rarely PROMIS PHYSICAL SCORE (range 16-68) 50.8 PROMIS MENTAL SCORE (range 21-68) 48.3 No [...] of breathing Musculoskeletal: Right foot and ankle exam reveals that the incisions are entirely healed. The patient has strong peroneal eversion, and negative anterior drawer and some tenderness over the lateral incision. DIAGNOSTIC STUDIES: n/a ASSESSMENT: S/p the above procedure. Doing well. PLAN: With regard to the patient's tenderness along her incision I did encourage her to massage the area with Arnica and continue to perform calf stretches in order to prevent any forefoot overload. I reminded her that the twinges in her foot and ankle are entirely normal and that they will gladis in 6 to8 months. She is very happy with her recovery thus far but will keep me updated if she has any questions or concerns. We will follow-up as her symptoms dictate. The patient expressed agreement with and understanding of this plan of care. The patient understands to contact us if they have any other questions or concerns. The above documentation was completed using [employer] voice recognition software. Warren Bellamy PA-C, MPAS Department of Orthopaedics [facility] Pager [phone] documented in this encounter Plan of Treatment Not on file documented as of this encounter Visit Diagnoses Diagnosis Ankle instability, right s/p brostrom recon, peroneus brevis repair, and OCD microfracture 05/07/23 ([place]) documented in this encounter Care Teams Lamp Stack Developer Relationship Specialty Start Date End Date Gemma Samaniego APRN [address] [place] [address] PCP - General Family Medicine 09/15/23 documented as of this encounter
--- OUTSIDE RECORDS SUMMARY | 2024-04-20 12:49 | XMS_ITS | Encounter Summary ---
Author Organization [facility] [place] [address] Care Team Providers Care Doula Name Role Phone Unknown Primary Care Provider Unavailabl e Encounter Details Date Type Department Care Team (Late st Contact Info) Description 02/12/2023 Orders [place] [address] Lilibeth Perry MD [facility] [address] [place] [address] Right ankle pain, unspecified chronicity Social History [...] documented as of this encounter Results * XR Ankle Min [...] who have questions please contact the health health care assistant that requested your imaging first. ? Electronically signed by: Magdalena Chisholm MD, [facility] ([phone]), at 02/18/2023 1:03 PM Narrative 02/18/2023 1:03 [...] patients who have questions please contactthe health health care assistant that requested your imaging first. Electronically signed by: Magdalena Chisholm MD, [facility]([phone]), at 02/18/2023 1:03 PM Lilibeth Perry MD IMG DX ORDERABLES documented in this encounter Visit Diagnoses Diagnosis Right ankle pain, unspecified chronicity Right ankle pain, unspecified chronicity documented in this encounter Care Teams Doula Relationship Specialty Start Date End Date Unknown None PCP - General 04/05/18 05/04/23 documented as of this encounter
--- OUTSIDE RECORDS SUMMARY | 2024-04-20 12:49 | XMS_ITS | Encounter Summary ---
Author Organization [facility] [place] [address] Care Team Providers Care Global Clinical Leader Name Role Phone Unknown Primary Care Provider Unavailabl e Reason for Visit * Reason Onset Date Comments Pre Procedure Call 02/23/2023 Encounter Details Date Type Department Care Team (Late st Contact Info) Description 02/23/2023 Telephone [place] [address] [facility] [place] [address] Pre Procedure Call (/) Social History Tobacco Use Types Packs/Day Years Used Date Smoking Tobacco: Never Assessed Sex and Gender Information Value Date Recorded Sex Assigned at Female 05/11/2023 8:49 AM EST Gender Identity Female 05/11/2023 8:49 AM EST Sexual Orientation Lesbian or Adorno 05/11/2023 8: 49 AM EST documented as of this encounter Miscellaneous Notes * Telephone Encounter - Cassandra Davis - 02/23/2023 10:17 AM EDT I called and left a message for patient to call [phone] directly and schedule surgery with Dr. Perry. documented in this encounter Plan of Treatment Not on file documented as of this encounter Visit Diagnoses Not on filedocumented in this encounter Care Teams Global Clinical Leader Relationship Specialty Start Date End Date Unknown None PCP - General 04/05/18 05/04/23 documented as of this encounter
--- OUTSIDE RECORDS SUMMARY | 2024-04-20 12:49 | XMS_ITS | Encounter Summary ---
Author Organization [place] [address] Care Team Providers Care Topography Technician Name Role Phone None Primary Care Provider Unavailabl e Reason for Visit * Reason Comments Follow-up Rt ankle scope Encounter Details Date Type Department Care Team (Latest Contact Info) Description 06/03/2023 11:30 AM EST Office Visit [place] [address] Lilibeth Perry MD [facility] [place] [address] Ankle instability, right s/p brostrom recon, peroneus brevis repair, and OCD microfracture 05/07/23 ([place]); Peroneus brevis tendinitis, right Social History Tobacco Use Types Packs/Day Years Used Date Smoking Tobacco: Never Smokeless Tobacco: Never Alcohol Use Standard Drinks/Week Comments Yes 0 (1 standard drink = 0.6 oz pur e alcohol) A couple drinks/week REPLACED BY [facility] Inpatient Questions Answer Date Recorded Prevent Contact [...] as of this encounter Progress Notes * Meghna Brennan - 06/03/2023 11:30 AM EST Images from the original note were not included. I saw and evaluated the patient on the date of the primary author's note. I have reviewed and agree with the findings and the plan of care as outlined in their note, with the following additions or alterations: The patient is doing quite well following her ankle reconstruction. She has continued to be nonweightbearing and denies any fevers or chills. She did have some issues with swelling in her calf a few days ago but that resolved within the same day and is not an issue today. On physical examination, her ankle is clinically stable and she fires her peroneals with good strength. She is distally neurovascularly intact and has minimal swelling. At this time, she can begin weightbearing as tolerated. Iwent through a boot weaning schedule. I will see her back in clinic in 6 weeks time for repeat functional evaluation. There is no need for x-rays at that time. Lilibeth Perry MD Orthopaedic Surgery Attending PATIENT NAME: Cassandra Brizuela AGE: 32 y.o. MR#: [id number] DATE OF VISIT: 06/03/2023 STAFF: Lilibeth Perry MD FOLLOW UP FOR: 4 weeks s/p R ankle arthroscopy with debridement and treatment of lateral talar domeosteochondral defect, R ankle Brostr??m stabilization with internal brace augmentation, R ankle peroneus brevis primary repair. HISTORY OF PRESENT ILLNESS: Ms. Brizuela is a 32 y.o. female who comes into clinic today for 4 week follow up s/p R ankle arthroscopy with debridement and treatment of lateral talar dome osteochondral defect, R ankle Brostr??m stabilization with internal brace augmentation, R ankle peroneus brevis primary repair. Pt reports pain is well controlled with acetaminophen. She started physical therapy last week and reports improved ROM already. Reports occasional swelling that she ices as needed. She is able to getaround well with her scooter but is ready to bear weight again. Denies numbness or tingling. 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 Medications and Allergies were reviewed in eD-H [...] 8.49) performed by Lilibeth Perry MD at [facility] PRO REPAIR COLLAT ANKLE LIGMNT, SECONDARY Right 05/07/2023 ANKLE LIGAMENT REPAIR, SECONDARY (BIANKA) (WRVU 9.61) performed by Lilibeth Perry MD at [facility] PRO REPAIR FLEX LEG TENDON, PRIM, EA Right 05/07/2023 FLEXOR TENDON REPAIR, LEG, PRIMARY (WRVU 5.12) performed by Lilibeth Perry MD at [facility] FAMILY HX: Family History Problem Relation [...] display PHYSICAL EXAM: Ms. Brizuela is a 32 y.o. female General appearance: in no acute distress, alert, cooperative Psych: cooperative with exam, appropriate Head: normocephalic, atraumatic EENT: EOMI grossly intact Neck: supple, trachea midline Cardiac: regular rate and rhythm by peripheral pulse Lungs: no extra work of breathing Musculoskeletal: Well healing incisions on medial and lateral aspects of R ankle, mild edema along R medial ankle, minimal tenderness to palpation of R ankle or foot, R foot and ankle neurovascularlyintact DIAGNOSTIC STUDIES: No new imaging to review at this visit. ASSESSMENT: Ms. Brizuela is a 32 y.o. female who comes into clinic today for 4 week follow up s/p R ankle arthroscopy with debridement and treatment of lateral talar dome osteochondral defect, R ankle Brostr??m stabilization with internal brace augmentation, R ankle peroneus brevis primary repair. Her pain is well controlled and she has started physical therapy with improved ROM. PLAN: Pt will follow up in 6 weeks to assess her status. She will continue physical therapy. Pt mayWBAT starting with her boot on, may advance to removing boot as long as she's not limping. No boot needed to sleep or bathe. She is allowed to drive at this time. The patient expressed agreement withand understanding of this plan of care. The patient understands to contact us if they have any other questions or concerns. Meghna Brennan Department of Orthopaedics [facility] documented in this encounter Plan of Treatment Not on file documented as of this encounter Visit Diagnoses Diagnosis Ankle instability, right s/p brostrom recon, peroneus brevis repair, and OCD microfracture 05/07/23 ([place]) Peroneus brevis tendinitis, right documented in this encounter Care Teams Topography Technician Relationship Specialty Start Date End Date None None PCP - General 05/05/23 09/14/23 documented as of this encounter
--- OUTSIDE RECORDS SUMMARY | 2024-04-20 12:49 | XMS_ITS | Encounter Summary ---
[place] [address] Care Team Providers Care Marketing Community Liaison Name Role Phone Gemma Samaniego APRN Primary Care Provider Encounter Details Date Type Department Care Team (Latest Contact Info) Description 09/15/2023 Travel Social History Tobacco Use Types Packs/Day [...] on filedocumented in this encounter Care Teams Marketing Community Liaison Relationship Specialty Start Date End Date Gemma Samaniego APRN [address] [place] [address] PCP - General Family Medicine 09/15/23 documented as of this encounter
--- OUTSIDE RECORDS SUMMARY | 2024-04-20 12:49 | XMS_ITS | Encounter Summary ---
Author Organization [facility] Address [facility] [place] [address] Care Team Providers Care Title Agent Name Role Phone Unknown Primary Care Provider Unavailabl e Encounter Details Date Type Department Care Team (Latest Contact Info) Description 04/30/2018 12:37 PM EDT - 04/30/2018 11:59 PM EDT Hospital Encounter Non-Invasive [place] [phone] Emile Daily MD [facility] CARDIOLOGY [place] [phone] Exercise intolerance Discharge Disposition: Home Social History Tobacco Use [...] Sig Dispensed Refills Start Date End Date metoprolol tartrate (LOPRESSOR) 25 mg Tablet Take 25 mg by mouth 2 times daily. levonorgestrel-ethinyl estradiol (SEASONALE;JOLESSA) 0.15 mg-30 mcg , 91 tablet dose pack, 3 months Take 1 tablet by mouth daily. documented as of this encounter Plan of Treatment Not on file documented as of this encounter Procedures Procedure Name Priority Date/Time Associated Diagnosis Comments STRESS TEST, EXERCISE (TREADMILL) Routine 04/30/2018 1:48 PM EDT Exercise intolerance documented in this encounter Results * Stress Test, Exercise (Treadmill) (04/30/2018 1:48 PM EDT) Anatomical Region Laterality Modality Other Emile Daily MD [facility] documented in this encounter Visit Diagnoses Diagnosis Exercise intolerance Other general symptoms documented in this encounter Care Teams Title Agent Relationship Specialty Start Date End Date Unknown None PCP - General 04/05/18 05/04/23 documented as of this encounter
--- OUTSIDE RECORDS SUMMARY | 2024-04-20 12:49 | XMS_ITS | Encounter Summary ---
[place] [address] Care Team Providers Care Hydroelectric Production Manager Name Role Phone Unknown Primary Care Provider Unavailabl e Encounter Details Date Type Department Care Team (Late st Contact Info) Description 10/25/2018 Telephone Hematology [place] [phone] Randy Camarena, [facility] Social History Tobacco Use Types Packs/Day Years Used Date Smoking Tobacco: Never Smokeless Tobacco: Never Sex and Gender Information Value Date Recorded Sex Assigned at Female 05/11/2023 8:49 AM EST Gender Identity Female 05/11/2023 8:49 AM EST Sexual Orientation Lesbian or Adorno 05/11/2023 8: 49 AM EST documented as of this encounter Miscellaneous Notes * Telephone Encounter - Randy Camarena - 10/25/2018 4:38 PM EDT Outgoing call for genetic testing results disclosure to Cassandra Nielsen. No answer, left voicemail to call office at her convenience. documented in this encounter Plan of Treatment Not on file documented as of this encounter Visit Diagnoses Not on filedocumented in this encounter Care Teams Hydroelectric Production Manager Relationship Specialty Start Date End Date Unknown None PCP - General 04/05/18 05/04/23 documented as of this encounter
--- OUTSIDE RECORDS SUMMARY | 2024-04-20 12:49 | XMS_ITS | Encounter Summary ---
Author Organization [facility] [place] [address] Care Team Providers Care Radiology Clerk Name Role Phone Unknown Primary Care Provider Unavailabl e Encounter Details Date Type Department Care Team (Late st Contact Info) Description 11/13/2022 Ancillary Procedure Radiology Library at [facility] [place] [address] Gemma Samaniego APRN [address] [place], [place] [id number] Social History Tobacco Use Types Packs/Day Years [...] Associated Diagnosis Comments FILM LIBRARY STORAGE ONLY MR ANKLE Routine 11/13/2022 12:00 AM EDT documented in this encounter Results * Film Library- Storage Only MR Ankle (11/13/2022 12:00 AM EDT) Narrative BANG GILLESPIE - 11/18/2022 2:58 PM EDT This exam is auto-finalizing. It's purpose is for storage only. Gemma Samaniego APRN IMG FILM LIBRARY ORD ERABLES BANG GILLESPIE [place], [place] documented in this encounter Visit Diagnoses Not on filedocumented in this encounter Care Teams Radiology Clerk Relationship Specialty Start Date End Date Unknown None PCP - General 04/05/18 05/04/23 documented as of this encounter
--- OUTSIDE RECORDS SUMMARY | 2024-04-20 12:49 | XMS_ITS | Encounter Summary ---
Author Organization [facility] Address [facility] [place] [address] Care Team Providers Care Electronics Engineering Technician Name Role Phone None Primary Care Provider Unavailabl e Reason for Referral * Physical Therapy (Routine) - Closed Specialty Diagnoses / Procedures Referred By Natalia shepard Referred To Contact Physical Therapy Diagnoses Ankle instability, right Warren Bellamy PA [facility] [place] [address] Physical Therapy, [address] [address] Referral ID Status Reason Start Date Expiration Date V isits Requested Visits Authorized [id number] Closed Evaluate and Treat PCP Updated and/or Approved 05/19/2023 11/15/2023 12 12 Reason for Visit * Reason Comments Post Op DOS:05/07/23 RIGHT AN KLE SCOPE/DEBRIDE/LIGAMENT REPAIR- Vicky Encounter Details Date Type Department Care Team (Latest Contact Info) Description 05/19/2023 2:00 PM EST Office [place] [address] Warren Bellamy PA [facility] [place] [address] Ankle instability, right s/p brostrom recon, peroneus brevis repair, and OCD microfracture 05/07/23 ([place]) Social History Tobacco Use Types Packs/Day Years Used Date Smoking Tobacco: Never Smokeless Tobacco: Never Alcohol Use Standard Drinks/Week Comments Yes 0 (1 standard drink = 0.6 oz pur e alcohol) A couple drinks/week [facility] Inpatient Questions Answer Date Recorded Prevent Contact [...] - Inhaled Oxygen Concentration - - Weight 88.5 kg (195 lb) 05/19/2023 1:42 PM EST Height 170.2 cm (5' 7) 05/19/2023 1:42 PM EST Body Mass Index 30.54 05/19/2023 1:42 PM EST documented in this encounter Progress Notes * Warren Bellamy PA - 05/19/2023 2:00 PM EST Images from the original note were not included. PATIENT NAME: Cassandra Brizuela AGE: 32 y.o. MR#: [id number] DATE OF VISIT: 05/19/2023 STAFF: Warren Bellamy PA-C FOLLOW UP FOR: Right ankle arthroscopy with extensive debridement and treatment of lateral talar dome osteochondral defect Right ankle Brostr??m stabilization with internal brace augmentation Right ankle peroneus brevis primary repair 05/07/23 HISTORY OF PRESENT ILLNESS: Ms. Brizuela is a 32 y.o. female who comes into clinic today for follow up of the above. She reports she is doing well. Denies fever, muscle aches or nausea. She has maintained her NWB status. Medications and Allergies were reviewed in eD-H [...] 8.49) performed by Lilibeth Perry MD at [facility] PRO REPAIR COLLAT ANKLE LIGMNT, SECONDARY Right 05/07/2023 ANKLE LIGAMENT REPAIR, SECONDARY (BIANKA) (WRVU 9.61) performed by Lilibeth Perry MD at [facility] PRO REPAIR FLEX LEG TENDON, PRIM, EA Right 05/07/2023 FLEXOR TENDON REPAIR, LEG, PRIMARY (WRVU 5.12) performed by Lilibeth Perry MD at [facility] FAMILY HX: Family History Problem [...] Not Currently Sexual activity: Not on file 02/18/2023 General Health, Prior Treatments, PreExisting Condition, Health Habits, About You PROMIS-10 General Health Good PROMIS-10 Quality of Life Good PROMIS-10 Physical Health Good PROMIS-10 Mental Health Very Good PROMIS-10 Social Activity Very Good PROMIS-10 Everyday Activities Moderately PROMIS-10 Pain 7 PROMIS-10 Fatigue Moderate PROMIS-10 Social Roles Very Good PROMIS-10 Anxious or Depressed Sometimes PROMIS PHYSICAL SCORE (range 16-68) 37.4 PROMIS MENTAL SCORE (range 21-68) 48.3 Treatments Tried Regular exercise Heat and ice therapy Brace Medicines applied on the skin (topical) Acetaminophen (e.g. Tylenol) Over the counter anti-inflammatory drugs (e.g Advil, Aspirin, Aleve) Alzheimers or dementia No Cirrohosis or liver disease No HIV/AIDS No Pain in more than one joint in legs No Back or neck pain Yes Heart attack No Heart failure No Unclog/bypass leg arteries No Stroke, blood clot, TIA No Asthma Yes Take medication for asthma Yes Emphysema, chronic bronchities, or COPD No Stomach ulcers/peptic ulcer disease Yes Condition diagnosed by endoscopy No Diabetes No Poor kidney function No Rheumatic condtions No Cancer No Weight (lbs) 194 Height (feet) 5 feet Height (Inches) 7 BMI 30.38 (Obese) Ever used tobacco products No Ever used alcoholic beverages Yes Alcohol frequency Weekly WHO - Alcohol Advice 4 (You are at risk of health and other problems from your current pattern of alcohol use.) Live Alone No Marital situation Schooling Some college or 2 - year degree Combined Household Income $75,000 or more # People Supported 5 Malawian, , No, not Malawian// Race White Health Literacy Extremely Currently working Yes Current job situation Full-time No data to display No data to display PHYSICAL EXAM: Ms. Brizuela is a 32 y.o. female General appearance: in no acute distress, alert, cooperative Psych: cooperative with exam, appropriate Head: normocephalic, atraumatic EENT: EOMI grossly intact Neck: supple, trachea midline Cardiac: regular rate and rhythm by peripheral pulse Lungs: no extra work of breathing Musculoskeletal: The skin over the foot and ankle is pink in color, warm and well perfused without calluses or lesions present. The incision sites are healing well with the skin well approximated, no signs of drainage, undermining, tunneling, or wound dehiscence. No erythema present. Good eversion strength Swelling present throughout the foot. DIAGNOSTIC STUDIES: No new diagnostic images were performed today ASSESSMENT: S/p the above procedure. Doing well. PLAN: The patient was fitted for a boot this visit. They may remove this boot when showering, performing physical therapy, sleeping and resting. I would like them to wear it when ambulating. I have sent them PT orders to perform ROM, stretching, desensitization core strength and other modalities. Follow up in 2 weeks to begin WBAT in boot. The patient expressed agreement with and understanding of this plan of care. The patient understands to contact us if they have any other questions or concerns. The above documentation was completed using [employer] voice recognition software. Warren Bellamy PA-C, MPAS Department of Orthopaedics [facility] Pager [phone] documented in this encounter Plan of Treatment Scheduled Referrals Name Type Priority Associated Diagnoses Orde r Schedule Referral to Physical Therapy Outpatient Referral Routine Ankle instability, right s/p brostrom recon, peroneus brevis repair, and OCD microfracture 05/07/23 ([place]) Ordered: 05/19/2023 documented as of this encounter Visit Diagnoses Diagnosis Ankle instability, right s/p brostrom recon, peroneus brevis repair, and OCD microfracture 05/07/23 ([place]) documented in this encounter Care Teams Electronics Engineering Technician Relationship Specialty Start Date End Date None None PCP - General 05/05/23 09/14/23 documented as of this encounter
--- OUTSIDE RECORDS SUMMARY | 2024-04-20 12:49 | XMS_ITS | Encounter Summary ---
Author Organization [facility] Address [place] [id number] Care Team Providers Care Chassis Mechanic Name Role Phone None Primary Care Provider Unavailabl e Encounter Details Date Type Department Care Team (Latest Contact Info) Description 06/03/2023 Travel Social History Tobacco Use Types Packs/Day [...] on filedocumented in this encounter Care Teams Chassis Mechanic Relationship Specialty Start Date End Date None None PCP - General 05/05/23 09/14/23 documented as of this encounter
--- OUTSIDE RECORDS SUMMARY | 2024-04-20 12:49 | XMS_ITS | Encounter Summary ---
Author Organization [facility] [place] [address] Care Team Providers Care Chair Name Role Phone None Primary Care Provider Unavailabl e Encounter Details Date Type Department Care Team (Late st Contact Info) Description 05/11/2023 [place] [phone] Logan Rojo MD [facility] [place] [address] Social History Tobacco Use Types Packs/Day Years [...] as of this encounter Progress Notes * Logan Rojo MD - 05/11/2023 11:27 AM EST REGIONAL NERVE BLOCK FOLLOW-UP I spoke to patient via telephone. Peripheral nerve block resolved appropriately. No residual weakness/numbness/decreased sensation. No sign of infection at injection site. Patient very satisfied withnerve block. If there are any questions or concerns regarding the nerve block, please do not hesitate to contactthe regional anesthesia team. Logan Rojo MD 05/11/2023 documented in this encounter Plan of Treatment Not on file documented as of this encounter Visit Diagnoses Not on filedocumented in this encounter Care Teams Chair Relationship Specialty Start Date End Date None None PCP - General 05/05/23 09/14/23 documented as of this encounter
--- OUTSIDE RECORDS SUMMARY | 2024-04-20 12:49 | XMS_ITS | Encounter Summary ---
Author Organization [facility] [place] [address] Care Team Providers Care Heel Edge Inker Machine Name Role Phone Unknown Primary Care Provider Unavailabl e Reason for Visit * Reason Onset Date Comments Results 05/07/2018 Encounter Details Date Type Department Care Team (Late st Contact Info) Description 05/07/2018 Telephone Cardiology at [address] [address] Adan Kenyon MD [facility] [place] [address] Results Social History Tobacco Use Types Packs/Day Years Used Date Smoking Tobacco: Never Smokeless Tobacco: Never Sex and Gender Information Value Date Recorded Sex Assigned at Female 05/11/2023 8:49 AM EST Gender Identity Female 05/11/2023 8:49 AM EST Sexual Orientation Lesbian or Adorno 05/11/2023 8: 49 AM EST documented as of this encounter Miscellaneous Notes * Telephone Encounter - Adan Kenyon MD - 05/07/2018 8:14 PM EDT I spoke with Ms. Nielsen about her exercise stress results. She went 12:52 on a Juan protocol, achieving 16.6 METs, with no ischemic changes or arrhythmia on ECG. Overall, he stress test is reassuring and does not show a cardiac cause for her exertional tolerance or shortness of breath. She is reassured and agrees that further investigation for her symptoms may be warranted with her primary carephysician. I let her know that we were more than happy to help should she have any other questions or concerns. Adan Kenyon MD 05/07/2018 * Telephone Encounter - Catarina Ellis - 05/07/2018 4:02 PM EDT Cassandra Ken would like the results of her stress test. Please call [phone]. Thank you documented in this encounter Plan of Treatment Not on file documented as of this encounter Visit Diagnoses Not on filedocumented in this encounter Care Teams Heel Edge Inker Machine Relationship Specialty Start Date End Date Unknown None PCP - General 04/05/18 05/04/23 documented as of this encounter
--- OUTSIDE RECORDS SUMMARY | 2024-04-20 12:49 | XMS_ITS | Encounter Summary ---
Author Organization [facility] [place] [address] Care Team Providers Care Baler Operator Name Role Phone None Primary Care Provider Unavailabl e Reason for Visit * Reason Onset Date Comments Post Procedure Call 05/20/2023 Encounter Details Date Type Department Care Team (Late st Contact Info) Description 05/20/2023 Telephone [place] [address] Lilibeth Perry MD [facility] [place] [address] Post Procedure Call Social History Tobacco Use Types Packs/Day Years [...] encounter Miscellaneous Notes * Telephone Encounter - Doris Castro - 05/20/2023 11:06 AM EST Office notes faxed to [facility] at [phone] * Telephone Encounter - Amarilys Castaneda - 05/20/2023 8:31 AM ESTSummary: Op Notes Request Name of person calling : [facility] person calling from: [facility] PT Who is the provider: Vicky Have you had surgery: Yes If yes : DOS:05/07 Surgeon: Vicky Is there a new injury: No If yes, how did the new injury occur?: Best contact number: [phone] What is the question: Oriana called stating she is just missing the OP notes for Pt. Please fax. FX: [phone] documented in this encounter Plan of Treatment Not on file documented as of this encounter Visit Diagnoses Not on filedocumented in this encounter Care Teams Baler Operator Relationship Specialty Start Date End Date None None PCP - General 05/05/23 09/14/23 documented as of this encounter
--- OUTSIDE RECORDS SUMMARY | 2024-04-20 12:49 | XMS_ITS | Encounter Summary ---
Author Organization [facility] Address [facility] [place] [address] Care Team Providers Care Substation Operator Conversion Name Role Phone Unknown Primary Care Provider Unavailabl e Encounter Details Date Type Department Care Team (Late st Contact Info) Description 01/17/2020 Ancillary Procedure [facility] [place] [address] Gemma Samaniego APRN [address] [place], [place] [id number] Social History Tobacco Use Types Packs/Day Years [...] Diagnosis Comments FILM LIBRARY STORAGE ONLY DX HIP Routine 01/17/2020 12:00 AM EDT documented in this encounter Results * Film Library- Storage Only DX Hip (01/17/2020 12:00 AM EDT) Narrative BANG GILLESPIE - 11/18/2022 2:58 PM EDT This exam is auto-finalizing. It's purpose is for storage only. Gemma Samaniego APRN IMG FILM LIBRARY ORD ERABLES [place], [place] documented in this encounter Visit Diagnoses Not on filedocumented in this encounter Care Teams Substation Operator Conversion Relationship Specialty Start Date End Date Unknown None PCP - General 04/05/18 05/04/23 documented as of this encounter
--- OUTSIDE RECORDS SUMMARY | 2024-04-20 12:49 | XMS_ITS | Encounter Summary ---
[place] [address] Care Team Providers Care Sack Lifter Name Role Phone None Primary Care Provider [...] SECONDARY (BROSTROM) (WRVU 9.61) Lilibeth Perry MD [facility] DR [place] [address] [facility] Referral ID Status Reason Start Date Expiration Date Visits Re quested Visits Authorized [id number] 1 1 Encounter Details Date Type Department Care Team (Late st Contact Info) Description 05/07/2023 10:12 AM EDT Anesthesia Event [facility] [place] [phone] Clare Hollingsworth MD [facility] [place] [address] Logan Rojo MD [facility] [place] [address] Anesthesia Record Procedure Summary Procedure Name Responsible Anesthesiologist Anesthesia Start Time Anesthesia Stop Time ARTHROSCOPY ANKLE, EXTENSIVE DEBRIDEMENT (WRVU 8.49) (Right: Ankle) Clare Hollingsworth MD 05/07/23 1012 05/07/23 1214 Events Date Time Event Comment 05/07/2023 1012 Start 1013 AN Verify 1013 An Start Data 1016 An Induction 1017 An Intubation 1020 Anesthesia Ready 1029 An Tourn Inflated 250 torr 1029 Procedure Start 1200 Extubation/LMA Out 1208 an stop data 1214 Recovery or ICU Handoff Radha ent care was transferred to the destination unit staff after review of the patient's medical history, current anesthetic/surgical status and plan, according to the Provider Handoff Checklist. 1214 Stop 1243 Meds Name Total BUpivacaine 0.5% 30 mL Propofol 300 mg Propofol INF 358.43 mg IV Lidocaine 50 mg Dexamethasone 8 mg Ondansetron 8 mg ceFAZolin (Ancef) 2 g vial a ttach to sodium chloride 0.9% 100 mL Mini-Bag Plus 2 g Dexmedetomidine 12 mcg lactated ringers infusion 1,000 mL * Agents Name O2 * Blood No blood administrations on file. Lines, Drains, and Airways Type Details Placement Removal Supraglottic Mask Ventilation: No t Attempted (0); LMA Type: iGel; LMA Size: 4; Inserted by: Robb Carver CRNA 05/07/23 1017 by Robb Carver CRNA Incision 05/07/23; 1038; Righ t; ankle 05/07/23 1038 by Nica Nuno RN PIV 05/07/23; 0820; yjqm-zpm-eovgot catheter system; 20 gauge; metacarpal vein (top of hand), left; Leticia ALEXANDER; distraction, appears comfortable, tolerated well; 05/07/23; 1252 05/07/23 0820 by Leticia Stanley RN 05/07/23 1252 by Kerry Banuelos RN documented in this encounter Social History Tobacco Use Types Packs/Day Years [...] AM EST documented as of this encounter OR Notes * Anesthesia Postprocedure Evaluation - Clare Hollingsworth MD - 05/07/2023 1:25 PM EDT Department of Anesthesiology Post-procedure Note Patient: Cassandra Brizuela Procedure Summary Date: 05/07/23 Room / Location: [facility] [address] [place] [address] Anesthesia Start: 1012 Anesthesia Stop: 1214 Procedures: ARTHROSCOPY ANKLE, EXTENSIVE DEBRIDEMENT (WRVU 8.49) (Right: Ankle) ANKLE LIGAMENT REPAIR, SECONDARY (BROSTROM) (WRVU 9.61) (Right: Ankle) Diagnosis: Ankle instability, right Peroneus brevis tendinitis, right (Right ankle instability) Surgeons: Lilibeth Perry MD Responsible Provider: Clare Hollingsworth MD Anesthesia Type: general ASA Status: 3 All Anesthesia Providers: Anesthesiologist: Clare oHllingsworth MD GLASS LOADING EQUIPMENT TENDER: Robb Carver CRNA Vitals Value Taken Time BP 126/69 05/07/23 1245 Temp 36.5 ??C (97.7 ??F) 05/07/23 1213 Pulse 80 05/07/23 1246 Resp 16 05/07/23 1245 SpO2 97 % 05/07/23 1246 Pain Level 0 05/07/23 1300 Vitals shown include unfiled device data. Patient Location: PACU/LOCATED WITHIN [facility] Level of Consciousness: Awake and Alert Pain Management: Satisfactory Analgesia PONV: None Cardiovascular Status: At Baseline Respiratory Status: At Baseline Postoperative Fluid Status: Intravascular EUvolemia Possible Anesthetic Complications: NONE apparent at time of evaluation Final Primary Anesthesia Type: General (The anesthetic type performed was the same as planned.) Comments: Pt happy with care * Anesthesia Preprocedure Evaluation - Logan Rojo MD - 05/06/2023 12:14 PM EDT Pre-Anesthesia Evaluation for: Cassandra Brizuela a 32 y.o. female. Procedure(s): ARTHROSCOPY ANKLE, EXTENSIVE DEBRIDEMENT (WRVU 8.49) ANKLE LIGAMENT REPAIR, SECONDARY (BROSTROM) (WRVU 9.61) There are no problems to display for this patient. No past medical history on file. No past surgical history on file. Social History Tobacco Use Smoking status: Not on file Smokeless tobacco: Not on file Substance Use Topics Alcohol use: Not on file Social History Substance and Sexual Activity Drug Use Not on file No Known Allergies Medications: MAR and/or home medications have been reviewed. Physical Exam: Preprocedure Vitals Current as of 05/06/23 1214 No BP, pulse, respiration, SpO2, or temperature recorded. Height: 170.2 cm (5' 7) (02/18/23) Weight: 91.6 kg (202 lb) (02/18/23) BMI: 31.63 IBW: 61.6 kg (135 lb 13.5 oz) Airway Assessment: Mallampati: II TM distance: >3 FB Neck ROM: full Cardiovascular Assessment: Rhythm: regular Rate: normal system normal Pulmonary Assessment: unlabored breathing pulmonary exam normal Dental Assessment: Misc Assessment: IV access: Peripheral line Last Filed Perioperative Cognitive Screening None Anesthesia Plan: ASA 3 general, with a(n) intravenous induction Cassandra Brizuela is a 32 y.o. female presenting for right ankle arthroscopy and ligamentous repair. PMHx: Asthma on daily flovent. Reports being told she has MR, but nothing needed be done / no symptoms / does not have to follow with cardiology. Past Negative stress test. NPO adequate. No other recent illnesses/fevers. Activity tolerance: METS>4. Anesthesia Hx: Past airway: NA. No prior issues with anesthesia. Labs (reviewed): unremarkable Plan is for pre op block, GA Logan Rojo MD 05/06/2023 Region - Other Informed Consent: Anesthetic plan and risks discussed with patient and spouse. Plan discussed with attending. Anesthesia Screening documented in this encounter Plan of Treatment Pending Results Name Type Priority Associated Diagnoses Date /Time Anesthesia Block Charge Routine 05/07/20 9:42 AM EDT documented as of this encounter Procedures Procedure Name Priority Date/Time Associated Diagnosis Comments ANESTHESIA BLOCK Routine 05/07/2023 9:42 AM EDT documented in this encounter Visit Diagnoses Not on filedocumented in this encounter Administered Medications Inactive Administered Medications - up to 3 most recent administrations Medication Order MAR Action Action Date Dose Rate Site BUpivacaine (pf) (Marcaine) (5 mg/mL) 0.5% injection Perineural, Starting on Landy 05/07/23 at 0942, Until Landy 05/07/23 at 0942, Anesthesia Intra-op, Routine Given 05/07/2023 9:42 AM EDT 30 mLs ceFAZolin (Ancef) 2 g vial attach to sodium chloride 0.9% 100 mL Mini-Bag Plus 2 g, Intravenous, ONCE, 1 dose, On Landy 05/07/23 at 0830, Administer over 30 Minutes, Day of Surgery (Day of Procedure), Indication for (Active or Suspected): Prophylaxis New Bag 05/07/2023 10:24 AM EDT 2 g dexAMETHasone (Decadron) injection Intravenous, PRN, Starting on Landy 05/07/23 at 1020, Until Landy 05/07/23 at 1214, Anesthesia Intra-op, Routine Given 05/07/2023 10:20 AM EDT 8 mg dexmedeTOMIDine (Precedex) (4 mcg/mL) bolus injection (Anesthsia) Intravenous, PRN, Starting on Landy 05/07/23 at 1030, Until Landy 05/07/23 at 1214, Anesthesia Intra-op, Routine Given 05/07/2023 11:16 AM EDT 8 mcg Given 05/07/2023 10:30 AM EDT 4 mcg lactated ringers infusion 1,000 mL, at 100 mL/hr, Intravenous, CONTINUOUS, Starting on Ladny 05/07/23 at 0830, Until Landy 05/07/23 at 1254, Day of Surgery (Day of Procedure) Restarted 05/07/2023 10:12 AM EDT New Bag 05/07/2023 8:26 AM EDT 1,000 mLs 100 mL/hr lidocaine (pf) (Xylocaine) (20 mg/mL) 2% injection syringe Intravenous, PRN, Starting on Landy 05/07/23 at 1016, Until Landy 05/07/23 at 1214, Anesthesia Intra-op, Routine Given 05/07/2023 10:16 AM EDT 50 mg ondansetron (pf) (Zofran) (2 mg/mL) injection Intravenous, PRN, Starting on Landy 05/07/23 at 1020, Until Landy 05/07/23 at 1214, Anesthesia Intra-op, Routine Given 05/07/2023 11:30 AM EDT 4 mg Given 05/07/2023 10:20 AM EDT 4 mg propofoL (Diprivan) (10 mg/mL) infusion Intravenous, CONTINUOUS PRN, Starting on Landy 05/07/23 at 1019, Until Landy 05/07/23 at 1214, Anesthesia Intra-op, Routine New Bag 05/07/2023 10:19 AM EDT 50 mcg/kg/min 26.55 mL/hr propofoL (Diprivan) 10 mg/mL bolus injection (Anesthesia) Intravenous, PRN, Starting on Landy 05/07/23 at 1016, Until Landy 05/07/23 at 1214, Anesthesia Intra-op Given 05/07/2023 10:16 AM EDT 300 mg documented in this encounter Care Teams Sack Lifter Relationship Specialty Start Date End Date None None PCP - General 05/05/23 09/14/23 documented as of this encounter
--- OUTSIDE RECORDS SUMMARY | 2024-04-20 12:49 | XMS_ITS | Encounter Summary ---
Author Organization [facility] Address [address] [place] [id number] Care Team Providers Care Administration Manager Name Role Phone Unavailable Primary Care Provider Unavailabl e Encounter Details Date Type Department Care Team (Late st Contact Info) Description 06/15/2020 Lab Requisition [facility] Pathology & [place] [address] Outr Resulting Lab, Provider Social History Tobacco Use Types Packs/Day Years Used Date Smoking Tobacco: Never Assessed Interpersonal Safety Answer Date Record ed Physically Hurt Never 06/15/2020 Verbally Threaten Not on file 06/15/2020 Sex and Gender Information Value Date Recorded Sex Assigned at Not on file Gender Identity Not on file Sexual Orientation Not on file documented as of this encounter Plan of Treatment Not on file documented as of this encounter Procedures Procedure Name Priority Date/Time Associated Diagnosis Comments HOLD SST Today 06/14/2020 11:00 EST RHEUMATOID FACTOR Today 06/14/2020 11: 00 EST ANTI NUCLEAR AB (ABDIAZIZ), IFA Today 06/14/2020 11:00 EST documented in this encounter Results * HOLD SST (06/14/2020 11:00 EST) Hold Hold 06/15/2020 17:30 EST [facility] Blood VENOUS BLOOD / Unknown 06/14/2020 11:00 EST 06/15/2020 16:20 EST Provider Outr Resulting Lab LAB INFO SER VICE AND SUPPORT & PHONE RESULT [facility] [address] [place] [address] * RHEUMATOID FACTOR (06/14/2020 11:00 EST) Rheumatoid Factor <8.6 <12.0 IU/mL 06/15/2020 16:53 EST [facility] Blood VENOUS BLOOD / Unknown 06/14/2020 11:00 EST 06/15/2020 16:19 EST Provider Outr Resulting Lab CHEMISTRY & BLOOD GAS ORDERABLES Performing Organization Address City/[facility]/ZIP Co de Phone Number [facility] [address] [place] [address] * ANTI NUCLEAR AB (ABDIAZIZ), IFA (06/14/2020 11:00 EST) ABDIAZIZ Interpretation Negative Negative 2019 14:25 EST [facility] Comment:No titer performed, ABDIAZIZ Screen is negative. Blood VENOUS BLOOD / Unknown 06/14/2020 11:00 EST 06/15/2020 16:19 EST Narrative [facility] - 06/18/2020 14:25 EST Results were obtained with the INOVA NOVA Lite HEp-2 ABDIAZIZ Kit by indirect immunofluorescence. Provider Outr Resulting Lab IMMUNOLOGY A ND SEROLOGY ORDERABLES Performing Organization Address City/[facility]/ZIP Co de Phone Number [facility] [address] [place] [address] documented in this encounter Visit Diagnoses Not on filedocumented in this encounter
--- OUTSIDE RECORDS SUMMARY | 2024-04-20 12:49 | XMS_ITS | Encounter Summary ---
Author Organization [facility] Address [facility] [place] [address] Care Team Providers Care Brush Polisher Name Role Phone None Primary Care Provider Unavailabl e Encounter Details Date Type Department Care Team (Late st Contact Info) Description 05/07/2023 Interpretation Only Radiology [address] [facility] [place] [address] Unknown None Social History Tobacco Use Types Packs/Day Years [...] Procedure Name Priority Date/Time Associated Diagnosis Comments DH OR ENDOSCOPY Routine 05/07/2023 documented in this encounter Results * DH OR Endoscopy (05/07/2023) Anatomical Region Laterality Modality Other 05/07/2023 Narrative 05/07/2023 12:00 AM EDT Photographs - Images Procedure Note Unknown - 06/22/2023 Photographs - Images Unknown EA IMAGES documented in this encounter Visit Diagnoses Not on filedocumented in this encounter Care Teams Brush Polisher Relationship Specialty Start Date End Date None None PCP - General 05/05/23 09/14/23 documented as of this encounter
--- OUTSIDE RECORDS SUMMARY | 2024-04-20 12:49 | XMS_ITS | Encounter Summary ---
Author Organization [facility] [place] [address] Care Team Providers Care Freelance Translator Name Role Phone Unknown Primary Care Provider Unavailabl e Reason for Referral * Consultation (Routine) - Closed Specialty Diagnoses / Procedures Referred By Natalia shepard Referred To Contact Orthopaedics Diagnoses Right ankle pain, unspecified chronicity Right knee pain, unspecified chronicity Gemma Samaniego APRN [address] [place] [address] [facility] [place] [facility] [address] [place] [phone] Referral ID Status Reason Start Date Expiration Date V isits Requested Visits Authorized [id number] Closed Consult, Test & Treat PCP Updated and/or Approved 11/22/2022 11/22/2023 6 6 Encounter Details Date Type Department Care Team (Latest Contact Info) Description 11/22/2022 Transcribe Orders eDH Incoming Referrals [phone] Gemma Samaniego APRN [address] [place] [address] Right ankle pain, unspecified chronicity; Right knee pain, unspecified chronicity Social History Tobacco Use Types Packs/Day Years Used Date Smoking Tobacco: Never Assessed Sex and Gender Information Value Date Recorded Sex Assigned at Female 05/11/2023 8:49 AM EST Gender Identity Female 05/11/2023 8:49 AM EST Sexual Orientation Lesbian or Adorno 05/11/2023 8: 49 AM EST documented as of this encounter Plan of Treatment Scheduled Referrals Name Type Priority Associated Diagnoses Orde r Schedule Referral to Orthopaedics Outpatient Referral Routine Right ankle pain, unspecified chronicity Right knee pain, unspecified chronicity Ordered: 11/22/2022 documented as of this encounter Visit Diagnoses Diagnosis Right ankle pain, unspecified chronicity Right knee pain, unspecified chronicity documented in this encounter Care Teams Freelance Translator Relationship Specialty Start Date End Date Unknown None PCP - General 04/05/18 05/04/23 documented as of this encounter
--- OUTSIDE RECORDS SUMMARY | 2024-04-20 12:49 | XMS_ITS | Encounter Summary ---
Author Organization [facility] Address [place] [id number] Care Team Providers Care Electrotype Finisher Name Role Phone None Primary Care Provider Unavailabl e Encounter Details Date Type Department Care Team (Latest Contact Info) Description 07/15/2023 Travel Social History Tobacco Use Types Packs/Day [...] on filedocumented in this encounter Care Teams Electrotype Finisher Relationship Specialty Start Date End Date None None PCP - General 05/05/23 09/14/23 documented as of this encounter
--- OUTSIDE RECORDS SUMMARY | 2024-04-20 12:49 | XMS_ITS | Encounter Summary ---
Author Organization [facility] [place] [address] Care Team Providers Care Souvenir [address] Vendor Name Role Phone Unknown Primary Care Provider Unavailabl e Reason for Referral * Physical Therapy (Routine) - Closed Specialty Diagnoses / Procedures Referred By Natalia shepard Referred To Contact Diagnoses Right ankle pain, unspecified chronicity Lilibeth Perry MD [facility] [place] [address] Unknown None Referral ID Status Reason Start Date Expiration Date V isits Requested Visits Authorized [id number] Closed Evaluate and Treat Non PCP 02/18/2023 08/17/2023 20 20 Reason for Visit * Reason Comments Establish Care Rt ankle pain - DOI 2020 * Consultation (Routine) - Closed Specialty Diagnoses / Procedures Referred By Natalia shepard Referred To Contact Orthopaedics Diagnoses Right ankle pain, unspecified chronicity Right knee pain, unspecified chronicity Gemma Samaniego APRN [address] [place] [address] [facility] [address] [place] [address] Referral ID Status Reason Start Date Expiration Date V isits Requested Visits Authorized [id number] Closed Consult, Test & Treat PCP Updated and/or Approved 11/22/2022 11/22/2023 6 6 Encounter Details Date Type Department Care Team (Late st Contact Info) Description 02/18/2023 11:00 AM EDT Office Visit [place] [address] Lilibeth Perry MD [facility] [place] [address] Right ankle pain, unspecified chronicity; Ankle instability, right; Peroneus brevis tendinitis, right; Pes planus of right foot; Hallux valgus (acquired), right foot Social History Tobacco Use Types Packs/Day Years [...] - Inhaled Oxygen Concentration - - Weight 91.6 kg (202 lb) 02/18/2023 10:50 AM EDT Height 170.2 cm (5' 7) 02/18/2023 10:50 AM EDT Body Mass Index 31.64 02/18/2023 10:50 AM EDT documented in this encounter Progress Notes * Lilibeth Perry MD - 02/18/2023 11:00 AM EDT Images from the original note were not included. PATIENT NAME: Cassandra Brizuela AGE: 32 y.o. MR#: [id number] DATE OF VISIT: 02/18/2023 DATE OF INJURY/ONSET: 2020 STAFF: Lilibeth Perry MD CHIEF COMPLAINT: Right ankle pain HISTORY OF PRESENT ILLNESS: Ms. Brizuela is a 32 y.o. female who comes into clinic today for evaluationof her right ankle. She is an active individual who approximately 2 years ago sustained a severe ankle sprain. At that time, she had significant lateral ankle swelling. She was diagnosed with having just a sprain. She tried to get back into regular activities but continued to have significant pain.She does better with wearing boots and immobilizing her ankles. She has pain specifically going up and down stairs. Most of her pain is lateral. She does have a fairly flat feet. She denies any catching or locking sensation. Medications and Allergies were reviewed in eD-H PAST MEDICAL HX: No past medical history on file. There is no problem list on file for this patient. PAST SURGICAL HX: No past surgical history on file. FAMILY HX: No family history on file. SOCIAL HX: Social History Occupational History Not on file Tobacco Use Smoking status: Not on file Smokeless tobacco: Not on file Substance and Sexual Activity Alcohol use: Not on file Drug use: Not on file Sexual activity: Not on file ROS: Pertinent items are noted in HPI. Constitutional: Denies fevers, chills, weight change HEENT: Denies headache, vision changes, neck pain, difficulty swallowing Endocrine: Denies malaise/lethargy, skin changes or temperature intolerance Respiratory: Denies shortness of breath, cough Cardiac: Denies chest pain, palpitations GI: denies abdominal pain, nausea, vomiting Skin: Denies new rashes or lesions Neuro: no numbness, tingling, or weakness Psychological: denies suicidal ideation Musculoskeletal: as above in HPI 02/18/2023 10:54 AM General Health, Prior Treatments, PreExisting Condition, Health [...] $75,000 or more # People Supported 5 [place]ar[place]uan, , No, not Nicaraguan// Race White Health Literacy Extremely Currently working [...] Lungs: no extra work of breathing Musculoskeletal: Examination of bilateral feet when standing reveal neutral heels and fairly flat arches. Further examination of the right ankle reveals no significant tenderness palpation along the posterior tibial tendon. She has tenderness to palpation at the anterolateral aspect of the ankle and along the course of the peroneals. She is able to fire her peroneals with fair strength and the peroneals remain located but she does have some tenderness to palpation along the course of the peroneals. She does have some appreciable ankle instability. Sensation is intact to light touch throughoutthe foot. The foot is warm and well-perfused. There is no posterior pain with maximum plantarflexion of the ankle. DIAGNOSTIC STUDIES: Personal review of weightbearing ankle films as well as her MRI show a flattened peroneus brevis and a small posterior os trigonum with a small amount of fluid around it. Weightbearing ankle films show that posterior os trigonum and an apparently flatfoot. Although this is not the right image for it she does have a lateral talar first metatarsal angle that is is negative. 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 I did talk with her about the fact that ultimately, she may have issues with her flat arch but at this time, we will dealwith her ankle instability with an ankle arthroscopy, Brostr??m and peroneal repair. The risks and benefits of the procedure were discussed with the patient. The patient signed an informed consent. Specific risks discussed with the patient include the risk of infection, bleeding, damage to adjacentstructures, recurrent laxity, blood clots, stiffness and need for further procedures. She will return for follow up postoperatively. The patient expressed agreement with and understanding of this plan of care. The patient understands to contact us if they have any other questions or concerns. The above documentation was completed using [employer] voice recognition software. Lilibeth Perry MD Department of Orthopaedics [facility] Pager: [phone] documented in this encounter Plan of Treatment Scheduled Referrals Name Type Priority Associated Diagnoses Orde r Schedule Referral to Physical Therapy Outpatient Referral Routine Right ankle pain, unspecified chronicity Ordered: 02/18/2023 documented as of this encounter Visit Diagnoses Diagnosis Right ankle pain, unspecified chronicity Ankle instability, right Peroneus brevis tendinitis, right Pes planus of right foot Hallux valgus (acquired), right foot documented in this encounter Care Teams Souvenir [address] Vendor Relationship Specialty Start Date End Date Unknown None PCP - General 04/05/18 05/04/23 documented as of this encounter
--- OUTSIDE RECORDS SUMMARY | 2024-04-20 12:49 | XMS_ITS | Encounter Summary ---
[place] [address] Care Team Providers Care Second Steward Name Role Phone Unknown Primary Care Provider Unavailabl e Reason for Visit * Reason Onset Date Comments Follow-up 03/20/2021 Encounter Details Date Type Department Care Team (Late st Contact Info) Description 03/20/2021 Telephone [place] [address] Giana Love, [facility] DR HEMATOLOGY/[place] [address] Follow-up Social History Tobacco Use Types Packs/Day Years Used Date Smoking Tobacco: Never Smokeless Tobacco: Never Sex and Gender Information Value Date Recorded Sex Assigned at Female 05/11/2023 8:49 AM EST Gender Identity Female 05/11/2023 8:49 AM EST Sexual Orientation Lesbian or Adorno 05/11/2023 8: 49 AM EST documented as of this encounter Miscellaneous Notes * Telephone Encounter - Giana Love [facility] WITH [facility] - 03/20/2021 12:37 PM EDT Cassandra called yesterday to let us know that her sister had recent testing that showed she has a mutation in PALB2. She was wondering if this was included in her testing in 2019 and if she needs to have any additional testing. I have reviewed her report and also communicated with Cady who did her testing. PALB2 analysis was included in the testing and per Cady the c.[id number] mutation detected in her sister would have been detected had it been present. I left a message for Cassandra to contact me to review this information. documented in this encounter Plan of Treatment Not on file documented as of this encounter Visit Diagnoses Not on filedocumented in this encounter Care Teams Second Steward Relationship Specialty Start Date End Date Unknown None PCP - General 04/05/18 05/04/23 documented as of this encounter
--- OUTSIDE RECORDS SUMMARY | 2024-04-20 12:49 | XMS_ITS | Encounter Summary ---
Author Organization [facility] [place] [address] Care Team Providers Care Aircraft Layout Worker Name Role Phone Unknown Primary Care Provider Unavailabl e Reason for Visit * Reason Onset Date Comments Disability Paperwork 02/27/2023 Encounter Details Date Type Department Care Team (Late st Contact Info) Description 02/27/2023 [place] [address] Lilibeth Perry MD [facility] [place] [address] Disability Paperwork Social History Tobacco Use Types Packs/Day Years Used Date Smoking Tobacco: Never Assessed Sex and Gender Information Value Date Recorded Sex Assigned at Female 05/11/2023 8:49 AM EST Gender Identity Female 05/11/2023 8:49 AM EST Sexual Orientation Lesbian or Adorno 05/11/2023 8: 49 AM EST documented as of this encounter Miscellaneous Notes * Telephone Encounter - Kiara Clay - 03/10/2023 9:34 AM EDT Completed by: Kiara To provider for review/signature: Signed Faxed/Mailed/[facility]/Pick-up Date: Faxed * Telephone Encounter - Oralia Rutledge - 02/27/2023 1:13 PM EDT Date Received: 02/26/23 Insurance/Disability Company Name: [employer] documented in this encounter Plan of Treatment Not on file documented as of this encounter Visit Diagnoses Not on filedocumented in this encounter Care Teams Aircraft Layout Worker Relationship Specialty Start Date End Date Unknown None PCP - General 04/05/18 05/04/23 documented as of this encounter
--- OUTSIDE RECORDS SUMMARY | 2024-04-20 12:49 | XMS_ITS | Encounter Summary ---
[place] [address] Care Team Providers Care Assembler Brazer Name Role Phone None Primary Care Provider [...] SECONDARY (BROSTROM) (WRVU 9.61) Lilibeth Perry MD [facility] [place] [address] [facility] Referral ID Status Reason Start Date Expiration Date Visits Re quested Visits Authorized [id number] 1 1 Encounter Details Date Type Department Care Team (Latest Contact Info) Description 05/07/2023 8:00 AM EDT - 05/07/2023 1:05 PM EDT Hospital Encounter [place]patient [place] [phone] Lilibeth Perry MD [facility] [place] [address] Ankle instability, right; Peroneus brevis tendinitis, right Discharge Disposition: Home Social History Tobacco Use [...] closest emergency room or call the hospital slasher operator at [phone] and ask for physician logging operations inspector covering for your physician. Questions or problems after 5pm or on a weekend: Call the [facility] slasher operator at and ask for the physician logging operations inspector covering for your doctor. Lower Extremity Nerve [...] after hours and ask for the anesthesiologist logging operations inspector. At 08:15am you received 1000 mg of [...] is a short acting narcotic pain medication. Iuxw-xvd-wloqibk Tylenol (acetaminophen) should be taken in addition [...] important in helping to prevent this. An viqj-jpz-meddshy stool softener can also help prevent or [...] Center 05/19/2023 2:00 PM Warren Bellamy PA [facility] [address] [place] [address] If you have questions or concerns please contact our [facility] office Thursday through Thursday, 8 AM - 5 PM, at . If it is after 5 PM or on the weekend, please call and ask to speak with the Orthopedic resident on-call. documented in this encounter Medications at Time of Discharge Medication Sig Dispensed Refills Start Date End Date ., 1.5-30 mg-mcg tablet 12/03/2022 norethindrone-ethinyl estradiol (Microgestin [...] presents for pre-operative examination. Please see Dr. Kaysnote for full details of the patient's specific [...] . Patient Pharmacy for outpatient medications: smalls [facility] Pain medications to prescribe:oxycodone WB status: NWB x 4 weeks Postop Dressing: Splint - leave in place until clinic follow up DVT prophylaxis: ASA 81 mg daily x 30 days Follow up: 2 week(s) documented in this encounter Miscellaneous Notes * Brief Op Note - Blair Canales MD - 05/07/2023 12:10 PM EDT Brief Operative Note Patient Name: Cassandra Brizuela : [id number] MR#: [id number] Case Date: 05/07/2023 Surgeon: Surgeon(s) and Role: [...] Perry MD - 05/07/2023 10:31 AM EDT [facility] Operative Note Patient Name: Cassandra Brizuela : [id number] MR#: [id number] Case Date: 05/07/2023 Surgeon: Surgeon(s) and Role: [...] Implant Name Type Inv. Item Serial No. Heating And Ventilating Drafter Lot No. LRB No. Used Action KIT FIXATION DRILL ANKLE INTERNALBRACE ([id number]) (AutoReq) - [id number] IMPLANTS KIT FIXATION DRILLANKLE INTERNALBRACE ([id number]) (AutoReq) [employer] [place] [id number] Right 1 Implanted Postoperative plan: The patient [...] right Repair Flex Leg Tendon, Prim, Ea ([id number]) 05/07/2023 10:13 AM EDT Ankle instability, right Peroneus brevis tendinitis, right Repair Collat Ankle Ligmnt, Secondary ([id number]) 05/07/2023 10:13 AM EDT Ankle instability, right Peroneus brevis tendinitis, right Ankle Scope, Extens Debridemnt ([id number]) 05/07/2023 10:13 AM EDT Ankle instability, right [...] 8:26 AM EDT 1,000 mLs 100 mL/hr documented in this encounter Active and Recently [...] RN) documented in this encounter Care Teams Assembler Brazer Relationship Specialty Start Date End Date None None PCP - General 05/05/23 09/14/23 documented as of this encounter
[2024-04-20 14:57] LABS: Abs Immature Grans 0.01 10^3/uL (0.0-0.06); Absolute Basophil Count 0.03 10^3/uL (0.0-0.2); Absolute Eosinophil Count 0.05 10^3/uL (0.0-0.7); Absolute Lymphocyte Count 1.81 10^3/uL (1.2-3.4); Absolute Monocyte Count 0.42 10^3/uL (0.1-0.8); Absolute Neutrophil Count 3.63 10^3/uL (1.2-6.7); Basophils % 0.5 %; Eosinophils % 0.8 %; HCT 44.7 % (36.0-46.0); HGB 15.1 g/dL (11.2-15.7); Immature Grans % 0.2 %; Lymphocytes % 30.4 %; MCH 29.7 pg (27.0-33.0); MCHC 33.8 % (32.0-36.0); MCV 88 fL (80-95); MPV 12.6 fL (8.0-11.0); Monocytes % 7.1 %; Platelet Count 237 10^3/uL (130-400); RBC 5.09 10^6/uL (3.93-5.22); RDW 12.2 % (11.7-14.6); RDW-SD 39.8 fL; WBC 5.95 10^3/uL (4.4-10.8)
[2024-04-20 19:29] LABS: ALT 24 U/L (14-59); AST 17 U/L (15-37); Albumin 4.4 g/dL (3.4-5.0); Alkaline Phosphatase 88 U/L (46-116); Anion Gap 12.4 mmol/L (3-11); BUN 9 mg/dL (7-18); Bilirubin, Total 0.39 mg/dL (0.2-1.0); CO2 24.6 mmol/L (21.0-32.0); CREATININE 0.9 mg/dL (0.55-1.02); Calcium 9.7 mg/dL (8.5-10.1); Calculated LDL 133 mg/dL (<100); Chloride 104 mmol/L (98-107); Cholesterol 235 mg/dL (<200); Estimated GFR 86.57 (mL/min/1.73m2); Glucose 93 mg/dL (74-106); HDL Cholesterol 41 mg/dL (40-60); Potassium 4.6 mmol/L (3.5-5.1); Sodium 141 mmol/L (136-145); TSH (W/Ref FT4) 1.55 uIU/mL (0.36-3.74); Triglyceride 307 mg/dL (<150)
== END 2024-04-20 12:47 | disposition home or self-care (01) ==
LOC: NCHCN 12:46
PROVIDERS: Visit Provider Nurse Practitioner Family
DX: R61 Generalized hyperhidrosis (principal); Z13.220 Encounter for screening for lipoid disorders
CPT/HCPCS: 80053; 80061; 84443; 85025